=== PATIENT | female | born 1945 | race Caucasian/White ===

== ENCOUNTER 2016-09-29 17:00 | Inpatient (IN) | payer MEDICARE ==
[2016-09-29] VITALS (7 sets, daily range): BP systolic 122–162; BP diastolic 57–92; PULSE 92–114; RESP 20–42; TEMP 94–102.2; O2SAT 90–100
[~2016-09-29] VITALS: Ht 157.5 cm; Wt 52.7 kg
[~2016-09-29 17:00] MED LIST: ASPI81TA11 PO; CARV3.125 PO; FERR324T4 PO; GABA100C4 PO; GLIP5 PO; LOVA20TA PO; METF500 PO; PLAV75TA PO; WALKER ROLLING; ZIPR20 PO
[2016-09-29] MEDS ORDERED: SODIUM CHLOR 0.9% 1000 ML INJ 1,000 ML IV ONE ×2 (17:15)
[2016-09-29] MEDS ORDERED: SODIUM CHLORIDE 0.9% FLUSH 10 ML FLUSH IVF PRN (17:15)
[2016-09-29] MEDS ORDERED: methylPREDNISolone SOD SUCC 125 MG/2 ML VIAL IV PUSH ONE (17:15)
[2016-09-29] MEDS ORDERED: ACETAMINOPHEN 325 MG TAB PO ONE (17:15)
--- NOTE | 2016-09-29 17:25 | PD ---
HPI Chief Complaint: Fever Time Seen by Provider: 17:16 Travel History International Travel<30 days: No Contact w/Intl Traveler<30days: No Traveled to known affect area: No History of Present Illness HPI 71-year-old female presents to the emergency department via EMS for evaluation of fever, shortness of breath. The patient was poorly found in her car with the windows up at her apartment complex. It is unsure how long she was in her car. The patient is alert. She knows her name and that she has at [place], but is unsure of the year. She states she does not know how long she was in her car. She states she does remember going to her car. She does report not feeling well with cough and fever for the past month. Patient does not know her past medical history. According to chart, she does have history of diabetes , NSTEMI, CVA. PFSH Past Medical History Arthritis: Yes (bilat feet) Asthma: No Heart Rhythm Problems: No (unknown) Cancer: No Cardiovascular Problems: Yes (recent hospitalization reported [place]) High Cholesterol: Yes Chest Pain: No Congestive Heart Failure: No COPD: No Cerebrovascular Accident: Yes (recent hospitalization) Diabetes: Yes (TYPE II) Endocrine: Yes GERD: No Genitourinary: No Hepatitis: No Hiatal Hernia: No Immune Disorder: No Kidney Stones: No Musculoskeletal: No Neurologic: No Psychiatric: No Reproductive: No Respiratory: Yes Migraines: No Renal Failure: No Seizures: No Sickle Cell Disease: No Sleep Apnea: No Thyroid Disease: No Ulcer: No Past Surgical History Abdominal Surgery: No AICD: No Arteriovenous Shunt: No Cardiac Surgery: No Ear Surgery: No Endocrine Surgery: No Eye Surgery: Yes (bilat cataracts removed 2014) Genitourinary Surgery: No Gynecologic Surgery: No Insulin Pump: No Joint Replacement: No Oral Surgery: Yes (all teeth removed) Pacemaker: No Thoracic Surgery: No Social History Tobacco Use: No (former) Substance Use: Yes (no longer taking marijuana or alcohol) Allergies-Medications (Allergen,Severity, Reaction): Coded Allergies: No Known Allergies (Unverified , 11/20/15) Reported Meds & Prescriptions Reported Meds & Active Scripts Active Reported Aspirin Adult Low Strength (Aspirin) 81 Mg Tabdr 81 Mg PO DAILY Lovastatin 10 Mg Tab 10 Mg PO DAILY Metformin (Metformin HCl) 500 Mg Tab 500 Mg PO BID With meals Gabapentin 300 Mg Cap 300 Mg PO TID Plavix (Clopidogrel Bisulfate) 75 Mg Tab 75 Mg PO DAILY Coreg (Carvedilol) 3.125 Mg Tab 3.125 Mg PO BID Glipizide 10 Mg Tab 10 Mg PO DAILY Take 30 minutes before a meal Review of Systems Except as stated in HPI: all other systems reviewed are Neg Physical Exam Narrative GENERAL: Well-nourished, well-developed female patient, temp of [-]. SKIN: Focused skin assessment warm/dry. HEAD: Normocephalic. Atraumatic. EYES: No scleral icterus. No injection or drainage. NECK: Supple, trachea midline. No JVD or lymphadenopathy. CARDIOVASCULAR: Regular rate and rhythm without murmurs, gallops, or rubs. Bilateral radial and pedal pulses 2+. RESPIRATORY: Breath sounds equal bilaterally. No accessory muscle use. Lung sounds with diffuse rhonchi. GASTROINTESTINAL: Abdomen soft, non-tender, nondistended. MUSCULOSKELETAL: No cyanosis, or edema. BACK: Nontender without obvious deformity. No CVA tenderness. Data Data Last Documented VS Vital Signs Date Time Temp Pulse Resp B/P Pulse Ox O2 Delivery O2 Flow Rate FiO2 09/29/16 19:26 98.6 101 20 139/63 95 09/29/16 17:33 Nasal Cannula 2.00 Orders Complete Blood Count With Diff (09/29/16 17:12) Basic Metabolic Panel (Bmp) (09/29/16 17:12) B-Type Natriuretic Peptide (09/29/16 17:12) D-Dimer (09/29/16 17:12) Act Partial Throm Time (Ptt) (09/29/16 17:12) Prothrombin Time / Inr (Pt) (09/29/16 17:12) Magnesium (Mg) (09/29/16 17:12) Ckmb (Isoenzyme) Profile (09/29/16 17:12) Troponin I (09/29/16 17:12) Urinalysis - C+S If Indicated (09/29/16 17:12) Influenzae A/B Antigen (09/29/16 17:12) Blood Culture (09/29/16 17:12) Iv Access Insert/Monitor (09/29/16 17:12) Electrocardiogram (09/29/16 17:12) Ecg Monitoring (09/29/16 17:12) Oximetry (09/29/16 17:12) Oxygen Administration (09/29/16 17:12) Chest, Single Ap (09/29/16 17:12) Sodium Chloride 0.9% Flush (Ns Flush) (09/29/16 17:15) Albuterol-Ipratropium Neb (Duoneb Neb) (09/29/16 17:15) Arterial Blood Gas (Abg) (09/29/16 ) Acetaminophen (Tylenol) (09/29/16 17:15) Sodium Chlor 0.9% 1000 Ml Inj (Ns 1000 M (09/29/16 17:15) Sodium Chlor 0.9% 1000 Ml Inj (Ns 1000 M (09/29/16 17:15) Lactic Acid Sepsis Protocol (09/29/16 17:12) Methylprednisolone So Succ Inj (Solumedr (09/29/16 17:15) Cefepime Inj (Maxipime Inj) (09/29/16 18:00) Vancomycin Inj (Vancomycin Inj) (09/29/16 18:00) Urine Culture (09/29/16 17:15) Ct Pulmonary Angiogram (09/29/16 ) Iohexol 350 Inj (Omnipaque 350 Inj) (09/29/16 19:02) Admit Order (Ed Use Only) (09/29/16 19:34) Labs Laboratory Tests Test 09/29/16 09/29/16 09/29/16 17:10 17:15 17:35 Prothrombin Time 13.3 SEC Prothromb Time International 1.2 RATIO Ratio Activated Partial 25.3 SEC Thromboplast Time D-Dimer Quantitative (PE/DVT) 1.58 MG/L FEU Sodium Level 141 MEQ/L Potassium Level 3.4 MEQ/L Chloride Level 107 MEQ/L Carbon Dioxide Level 18.4 MEQ/L Anion Gap 16 MEQ/L Blood Urea Nitrogen 17 MG/DL Creatinine 1.16 MG/DL Estimat Glomerular Filtration 46 ML/MIN Rate Random Glucose 268 MG/DL Lactic Acid Level 2.4 mmol/L Calcium Level 8.2 MG/DL Magnesium Level 1.8 MG/DL Total Creatine Kinase 29 U/L Troponin I 0.06 NG/ML B-Type Natriuretic Peptide 3094 PG/ML White Blood Count 5.4 TH/MM3 Red Blood Count 5.47 MIL/MM3 Hemoglobin 14.4 GM/DL Hematocrit 45.1 % Mean Corpuscular Volume 82.5 FL Mean Corpuscular Hemoglobin 26.3 PG Mean Corpuscular Hemoglobin 31.8 % Concent Red Cell Distribution Width 15.5 % Platelet Count 119 TH/MM3 Mean Platelet Volume 8.9 FL Neutrophils (%) (Auto) 89.5 % Lymphocytes (%) (Auto) 4.3 % Monocytes (%) (Auto) 4.9 % Eosinophils (%) (Auto) 0.5 % Basophils (%) (Auto) 0.8 % Neutrophils # (Auto) 4.9 TH/MM3 Lymphocytes # (Auto) 0.2 TH/MM3 Monocytes # (Auto) 0.3 TH/MM3 Eosinophils # (Auto) 0.0 TH/MM3 Basophils # (Auto) 0.0 TH/MM3 CBC Comment DIFF FINAL Differential Comment Urine Color DARK-YELLOW Urine Turbidity HAZY Urine pH 5.5 Urine Specific [place] 1.023 Urine Protein 100 mg/dL Urine Glucose (UA) NEG mg/dL Urine Ketones TRACE mg/dL Urine Occult Blood SMALL Urine Nitrite NEG Urine Bilirubin NEG Urine Urobilinogen 4.0 MG/DL Urine Leukocyte Esterase LARGE Urine RBC 5 /hpf Urine WBC 57 /hpf Urine Squamous Epithelial 2 /hpf Cells Urine Transitional Epithelial 1 /hpf Cells Urine Bacteria MANY /hpf Urine Hyaline Casts 5 /lpf Urine Mucus MOD /lpf Microscopic Urinalysis Comment CULTURE INDICATED Blood Gas Puncture Site RT RADIAL Blood Gas Patient Temperature 98.6 Blood Gas HCO3 18 mmol/L Blood Gas Base Excess -5.8 mmol/L Blood Gas Oxygen Saturation 81 % Arterial Blood pH 7.41 Arterial Blood Partial 29 mmHg Pressure CO2 Arterial Blood Partial 50 mmHG Pressure O2 Arterial Blood Oxygen Content 11.0 Vol % Arterial Blood 1.7 % Carboxyhemoglobin Arterial Blood Methemoglobin 0.3 % Blood Gas Hemoglobin 9.7 G/DL Oxygen Delivery Device NASAL CANNULA Blood Gas Liter Flow 2 L/M [facility] Medical Decision Making Medical Screen Exam Complete: Yes Emergency Medical Condition: Yes Medical Record Reviewed: Yes Interpretation(s) Last Impressions Chest X-Ray 09/29/16 0273 Signed Impressions: Service Date/Time: Thursday, September 29, 2016 17:32 - CONCLUSION: 1. Small right pleural effusion with associated volume loss and/or airspace consolidation. 2. Retrocardiac opacity may represent atelectasis or airspace consolidation. Abdirizak Estrada MD CT pulmonary angiogram = CONCLUSION: 1. Examination quality degraded by respiratory motion artifact. However, no PE is identified. 2. Moderate severity emphysema with large right and small left pleural effusion with associated compressive atelectasis. 3. Severe coronary artery calcification atherosclerotic disease of the aorta. Differential Diagnosis pneumonia vs. dehydration vs. sepsis vs. electrolyte abnormality vs. PE vs. ACS Narrative Course 71-year-old female presents to the emergency department via EMS for evaluation after being found in her car with the windows. Patient does report cough and fever for the past month. EKG shows sinus tachycardia, heart rate 113. Patient does have ST depression in V4, V5, V6 but does appear unchanged when compared to previous EKGs. CBC, BMP, BNP, magnesium, CK, troponin, PTT, PTT/INR , d-dimer, lactic acid, blood cultures 2, and influenza are ordered and pending. ABG and chest x-ray are ordered and pending. Patient is given DuoNeb 2, Solu-Medrol 125 mg IV, Tylenol 650 mg by mouth. Patient is given normal saline IV bolus 2. CBC shows normal WBC of 5.4. BMP shows anion gap of 16, BUN 17, currently 1.16 , glucose 268. Magnesium is 1.8. CK is 29. Troponin is 0.06. Lactic acid is 2.4. BNP is 3094. Coags show no acute abnormality. D-dimer is elevated at 1.58. Influenza is negative. Chest x-ray shows small right pleural effusion with associated volume loss and/or airspace consolidation. 2. Retrocardiac opacity may represent atelectasis or airspace consolidation. Patient is given cefepime 2 g IV, vancomycin [address] pulmonary angiogram is ordered and pending. CT pulmonary angiogram shows examination quality degraded by respiratory motion artifact. However, no PE is identified; moderate severity emphysema with large right and small left pleural effusion with associated compressive atelectasis; Severe coronary artery calcification atherosclerotic disease of the aorta. [facility] is paged for admission. Sepsis Criteria SIRS Criteria (2 or more): Temp > 100.9 or < 96.8, Heart rate over 90 Sepsis Criteria (SIRS+source): Infect source susp/known Severe Sepsis (+one): Lactate >2 Diagnosis Primary Impression: Pleural effusion Additional Impression: Pneumonia Qualified Code: J18.1 - Pneumonia of right lower lobe due to infectious organism Admitting Information Admitting Physician Requests: Admit Anaid Hale Sep 29, 2016 17:25 Anaid Hale Sep 29, 2016 17:25
[2016-09-29] MEDS: RESP: ALBUTEROL 2.5 MG/IPRATROPIUM 0.5 MG NEB (SCH) INH (17:33)
[2016-09-29 17:50] LABS: BLOOD GAS BASE EXCESS -5.8 mmol/L (-2-2); BLOOD GAS CARBOXYHEMOGLOBIN 1.7 % (0-4); BLOOD GAS HCO3 18 mmol/L (22-26); BLOOD GAS METHEMOGLOBIN 0.3 % (0-2); BLOOD GAS O2 HGB SATURATION 81 % (90-100); BLOOD GAS PCO2 29 mmHg (38-42); BLOOD GAS PO2 50 mmHG (61-120); BLOOD GAS TOTAL HGB 9.7 G/DL (12.0-16.0); TEMP CORR TO 98.6
[2016-09-29 17:51] LABS: CRITICAL VALUE YES; LITER FLOW 2 L/M; OXYGEN DEVICE NASAL CANNULA
[2016-09-29 17:52] LABS: DRAW SITE RT RADIAL; NUMBER OF ARTERIAL PUNCTURES 1; STAT YES; ULNAR PULSE PRESENT
[2016-09-29 17:53] LABS: AUTOMATED NEUTROPHIL # 4.9 TH/MM3 (1.8-7.7); BASOPHIL % 0.8 % (0.0-2.0); EOSINOPHIL % 0.5 % (0.0-4.0); HEMATOCRIT 45.1 % (35.0-46.0); HEMO FLAGS DIFF FINAL; LYMPH % 4.3 % (9.0-44.0); LYMPHOCYTE # 0.2 TH/MM3 (1.0-4.8); MEAN CELL VOLUME 82.5 FL (80.0-100.0); MEAN CORPUSCULAR HEMOGLOBIN 26.3 PG (27.0-34.0); MEAN CORPUSCULAR HGB CONC 31.8 % (32.0-36.0); MONO % 4.9 % (0.0-8.0); NEUT % 89.5 % (16.0-70.0); PLATELET COUNT 119 TH/MM3 (150-450); RED BLOOD COUNT 5.47 MIL/MM3 (4.00-5.30); RED CELL DISTRIBUTION WIDTH 15.5 % (11.6-17.2); WHITE BLOOD COUNT 5.4 TH/MM3 (4.0-11.0)
[2016-09-29 17:57] LABS: BACTERIA, URINE MANY /hpf; BLOOD, URINE SMALL (NEG); COMMENT (UR) CULTURE INDICATED; CULTURE IF INDICATED CULTURE INDICATED; GLUCOSE,URINE NEG (NEG); HYALINE CAST, URINE 5 /lpf (RARE); KETONE, URINE TRACE mg/dL (NEG); MUCUS URINE MOD /lpf (OCC); NITRITE,URINE NEG (NEG); PH, URINE 5.5 (5.0-8.5); SQUAMOUS EPITHELIAL CELL URINE 2 /hpf (0-5); TRANSITIONAL EPI CELLS, URINE 1 /hpf; URINE COLOR DARK-YELLOW (YELLW/STRAW)
[2016-09-29] MEDS ORDERED: CEFEPIME INJ 2,000 MG in SODIUM CHLORIDE 0.9% INJ 100 ML IV ONE (18:00)
[2016-09-29] MEDS ORDERED: VANCOMYCIN INJ 1,500 MG in SODIUM CHLORID 0.9% 500 ML INJ 500 ML IV ONE (18:00)
[2016-09-29 18:06] LABS: APTT (PATIENT) 25.3 SEC (24.3-30.1); INTERNATIONAL NORMALIZED RATIO 1.2 RATIO; PROTHROMBIN TIME - PATIENT 13.3 SEC (9.8-11.6)
[2016-09-29 18:11] LABS: BICARBONATE 18.4 MEQ/L (21.0-32.0); MAGNESIUM 1.8 MG/DL (1.5-2.5); POTASSIUM 3.4 MEQ/L (3.5-5.1)
--- NOTE | 2016-09-29 18:17 | RADRPT ---
EXAM DATE/TIME: 09/29/2016 17:32 [facility] COMPARISON: CHEST SINGLE AP, November 22, 2015, 15:30. INDICATIONS : Fever. Cough. Short of breath. Chest pain. MEDICAL HISTORY : Hypercholesterolemia. Diabetes mellitus type II. Chronic obstructive pulmonary disease. Hypertens ion. Carcinoma, basal cell. SURGICAL HISTORY : Bilateral cataracts. Teeth extraction. Bilateral common and external iliac angioplasty. Right femoral endarterectomy. Left commom iliac stent. ENCOUNTER: Initial ACUITY: 2 days PAIN SCORE: 3/10 LOCATION: Bilateral chest FINDINGS: Portable AP view of the chest demonstrates a normal-sized cardiac silhouette with calcification of th e aorta. There is a right basilar pleural-parenchymal opacity. There are perihilar interstitial opaci ties bilaterally. Mild retrocardiac opacity is present. There is no pneumothorax visualized. Bones an d soft tissues demonstrate no acute finding. CONCLUSION: 1. Small right pleural effusion with associated volume loss and/or airspace consolidation. 2. Retrocardiac opacity may represent atelectasis or airspace consolidation. Abdirizak Estrada MD on September 29, 2016 at 18:13 Board Certified Radiologist. This report was verified electronically.
[2016-09-29] MEDS ORDERED: GABA300C5 PO (18:44)
[2016-09-29] MEDS ORDERED: METF500T PO (18:44)
[2016-09-29] MEDS ORDERED: PLAV75TA29 PO (18:44)
[2016-09-29] MEDS ORDERED: CARV3.125 PO (18:44)
[2016-09-29] MEDS ORDERED: LOVA10TA PO (18:44)
[2016-09-29] MEDS ORDERED: ASPI1TAB91 PO (18:44)
[2016-09-29] MEDS ORDERED: GLIP10TA6 PO (18:44)
[2016-09-29] MEDS ORDERED: IOHEXOL 350 MG/ML 10 ML VIAL (for RAD DIAG) IV ONE (19:02)
--- NOTE | 2016-09-29 19:13 | RADRPT ---
EXAM DATE/TIME: 09/29/2016 18:52 [facility] COMPARISON: CHEST SINGLE AP, September 29, 2016, 17:32. INDICATIONS : Shortness of breath. IV CONTRAST: 100 cc Omnipaque 350 (iohexol) IV RADIATION DOSE: 22.84 CTDIvol (mGy) MEDICAL HISTORY : Cardiovascular disease. Hypertension. SURGICAL HISTORY : None. ENCOUNTER: Initial ACUITY: 1 day PAIN SCALE: 3/10 LOCATION: Bilateral chest TECHNIQUE: Volumetric scanning of the chest was performed using a pulmonary embolism protocol MIP images were re constructed. Using automated exposure control and adjustment of the mA and/or kV according to patien t size, radiation dose was kept as low as reasonably achievable to obtain optimal diagnostic quality images. FINDINGS: PULMONARY ARTERIES: No filling defects are seen in the pulmonary arteries through the segmental level. LUNGS: There is [id number] centrilobular emphysema. Compressive atelectasis is present in both lower l obes, right greater than left. There is respiratory motion artifact. No pneumothorax is visualized. PLEURAE: There is a large right pleural effusion and small left pleural effusion. MEDIASTINUM: Heart and great vessels demonstrate no acute finding. There is severe atherosclerotic disease of aort a and coronary artery calcification. Trace pericardial fluid is present. No lymphadenopathy is visual ized. MUSCULOSKELETAL: There are degenerative changes of the thoracic spine. MISCELLANEOUS: The visualized upper abdominal organs demonstrate no acute abnormality. CONCLUSION: 1. Examination quality degraded by respiratory motion artifact. However, no PE is identified. 2. Moderate severity emphysema with large right and small left pleural effusion with associated compr essive atelectasis. 3. Severe coronary artery calcification atherosclerotic disease of the aorta. Abdirizak Estrada MD on September 29, 2016 at 19:06 Board Certified Radiologist. This report was verified electronically.
[2016-09-29 19:44] LABS: LACTIC ACID GHOST NOT REPORTABLE
[2016-09-29] MEDS ORDERED: NALOXONE HCL 0.4 MG/ML AMP IV PRN (19:45)
[2016-09-29] MEDS ORDERED: SODIUM CHLORIDE 0.9% FLUSH 10 ML FLUSH IV FLUSH PRN (19:45)
[2016-09-29] MEDS ORDERED: FUROSEMIDE 40 MG/4 ML VIAL IV PUSH ONE ×2 (20:00→22:30)
[2016-09-29] MEDS ORDERED: POTASSIUM CHLORIDE 25 MEQ EFFERVESCENT TAB PO ONE (20:00)
[2016-09-29] MEDS: SODIUM CHLORIDE 0.9% FLUSH 10 ML FLUSH IV FLUSH SCH (21:00)
--- NOTE | 2016-09-29 22:23 | HHI.HP ---
[facility] Admission Diagnosis bilateral pleural effusions, pneumonia, sepsis Diagnoses: Chief Complaint: SOB with cough and chest pain Travel History International Travel<30 Days: No Contact w/Intl Traveler <30 Da: No Traveled to Known Affected Are: No Sepsis Criteria SIRS Criteria (2 or more): Temp > 100.9 or < 96.8, Heart rate over 90, RR > 20 or PaCO2 < 32 Sepsis Criteria (SIRS+source): Infect source susp/known History of Present Illness This is a 71 year old female patient with a past medical history which includes Peripheral vascular disease, CVA, Non-ST elevation myocardial infarction, CAD, Hypertension and CHF. Patient reports she does not know why she is here at the hospital. Patient is a poor historian and only able to provide limited information. Information gathered from patient and prior charting. Patient was found today in her car at her apartment complex with the windows up. Patient does not recall being in the car. Patient reports shortness of breath with productive cough for the last few days. Patient also report chest pain which she describes as a tightness located on the left side of her chest worse with deep breathing. There is no radiation of the pain/tightness. Patient denies associated nausea, vomiting or diaphoresis. Patient report she fell about three days ago and her granddaughter had to help her up. Patient reports that she has fallen three time in the last few days. Patient denies LOC, head trauma or injuries. Patient does not recall fevers or chills recently. Patient on arrival temperature was 102.2 rectally, HR 114, RR 42, BP 156/67 and pulse oximetry 90% on room air. Review of Systems Except as stated in HPI: all other systems reviewed are Neg Past Family Social History Past Medical History Peripheral vascular disease CVA Non-ST elevation myocardial infarction CAD Hypertension CHF Diabetes mellitus type 2 Past Surgical History Cataract surgery Right Achilles tendon surgery Reported Medications Aspirin Adult Low Strength (Aspirin) 81 Mg Tabdr 81 Mg PO DAILY Lovastatin 10 Mg Tab 10 Mg PO DAILY Metformin (Metformin HCl) 500 Mg Tab 500 Mg PO BID With meals Gabapentin 300 Mg Cap 300 Mg PO TID Plavix (Clopidogrel Bisulfate) 75 Mg Tab 75 Mg PO DAILY Coreg (Carvedilol) 3.125 Mg Tab 3.125 Mg PO BID Glipizide 10 Mg Tab 10 Mg PO DAILY Take 30 minutes before a meal Allergies: Coded Allergies: No Known Allergies (Unverified , 11/20/15) Active Ordered Medications Current Medications Medications (Trade) Dose Ordered Sig/Unruly Route Start Time Stop Time Status Last Admin (NS Flush) 2 ml UNSCH PRN IV FLUSH 09/29/16 19:45 (NS Flush) 2 ml BID IV FLUSH 09/29/16 21:00 09/29/16 21:00 (Narcan Inj) 0.4 mg UNSCH PRN IV 09/29/16 19:45 (Nitroglycerin 2% Oint) 0.5 inch Q6HR TOPICAL 09/30/16 00:00 Heparin Sodium (Porcine) 5000 units 5,000 units Q8HR SQ 09/30/16 06:00 (Maxipime Inj/NS Inj) 100 ml @ 200 mls/hr Q12H IV 09/30/16 06:00 Family History daughter had CA x 3 Social History Lives alone quit smoking 10 to 15 years ago Denies ETOH use or illicit drug use Physical Exam Vital Signs Vital Signs Date Time Temp Pulse Resp B/P Pulse Ox O2 Delivery O2 Flow Rate FiO2 09/29/16 21:44 94.0 100 21 162/92 100 09/29/16 20:54 92 20 155/76 97 Nasal Cannula 2 09/29/16 19:26 98.6 101 20 139/63 95 09/29/16 17:36 104 122/57 09/29/16 17:33 96 Nasal Cannula 2.00 09/29/16 17:23 102.2 09/29/16 17:17 95 Nasal Cannula 2 09/29/16 17:17 Nasal Cannula 09/29/16 17:15 113 Nasal Cannula 2 09/29/16 17:11 114 42 156/67 90 Physical Exam GENERAL: This is a well-nourished, well-developed patient, in no apparent distress. SKIN: No rashes, ecchymoses or lesions. Cool and dry. HEAD: Atraumatic. Normocephalic. No temporal or scalp tenderness. EYES: Extraocular motions intact. No scleral icterus. No injection or drainage. CARDIOVASCULAR: Regular rate and rhythm without murmurs, gallops, or rubs. RESPIRATORY: diminished through out GASTROINTESTINAL: Abdomen soft, non-tender, nondistended. No hepato-splenomegaly , or palpable masses. No guarding. MUSCULOSKELETAL: Extremities without clubbing, cyanosis, or edema. No joint tenderness, effusion, or edema noted. No calf tenderness. Negative Homans sign bilaterally. NEUROLOGICAL: Awake and alert. no focal deficits appreciated. Motor and sensory grossly within normal limits. 4-5 out of 5 muscle strength in all muscle groups. Normal speech. Laboratory Laboratory Tests Test 09/29/16 09/29/16 09/29/16 09/29/16 17:10 17:15 17:35 20:20 White Blood Count 5.4 Red Blood Count 5.47 Hemoglobin 14.4 Hematocrit 45.1 Mean Corpuscular Volume 82.5 Mean Corpuscular Hemoglobin 26.3 Mean Corpuscular Hemoglobin 31.8 Concent Red Cell Distribution Width 15.5 Platelet Count 119 Mean Platelet Volume 8.9 Neutrophils (%) (Auto) 89.5 Lymphocytes (%) (Auto) 4.3 Monocytes (%) (Auto) 4.9 Eosinophils (%) (Auto) 0.5 Basophils (%) (Auto) 0.8 Neutrophils # (Auto) 4.9 Lymphocytes # (Auto) 0.2 Monocytes # (Auto) 0.3 Eosinophils # (Auto) 0.0 Basophils # (Auto) 0.0 CBC Comment DIFF FINAL Differential Comment Prothrombin Time 13.3 Prothromb Time International 1.2 Ratio Activated Partial 25.3 Thromboplast Time D-Dimer Quantitative (PE/DVT) 1.58 Sodium Level 141 Potassium Level 3.4 Chloride Level 107 Carbon Dioxide Level 18.4 Anion Gap 16 Blood Urea Nitrogen 17 Creatinine 1.16 Estimat Glomerular Filtration 46 Rate Random Glucose 268 Lactic Acid Level 2.4 1.5 Calcium Level 8.2 Magnesium Level 1.8 Total Creatine Kinase 29 Troponin I 0.06 B-Type Natriuretic Peptide 3094 Urine Color DARK-YELLOW Urine Turbidity HAZY Urine pH 5.5 Urine Specific [place] 1.023 Urine Protein 100 Urine Glucose (UA) NEG Urine Ketones TRACE Urine Occult Blood SMALL Urine Nitrite NEG Urine Bilirubin NEG Urine Urobilinogen 4.0 Urine Leukocyte Esterase LARGE Urine RBC 5 Urine WBC 57 Urine Squamous Epithelial 2 Cells Urine Transitional Epithelial 1 Cells Urine Bacteria MANY Urine Hyaline Casts 5 Urine Mucus MOD Microscopic Urinalysis Comment CULTURE INDICATED Blood Gas Puncture Site RT RADIAL Blood Gas Patient Temperature 98.6 Blood Gas HCO3 18 Blood Gas Base Excess -5.8 Blood Gas Oxygen Saturation 81 Arterial Blood pH 7.41 Arterial Blood Partial 29 Pressure CO2 Arterial Blood Partial 50 Pressure O2 Arterial Blood Oxygen Content 11.0 Arterial Blood 1.7 Carboxyhemoglobin Arterial Blood Methemoglobin 0.3 Blood Gas Hemoglobin 9.7 Oxygen Delivery Device NASAL CANNULA Blood Gas Liter Flow 2 Date/Time Procedure Status Source Growth 09/29/16 18:20 Influenza Types A,B Antigen (DONNIE) - Final Complete Nasal Aspirate NEGATIVE FOR FLU A AND B ANTIGEN.... 09/29/16 17:15 Urine Culture Received Urine Random Urine Pending 09/29/16 17:15 Aerobic Blood Culture Received Blood Peripheral Pending 09/29/16 17:15 Anaerobic Blood Culture Received Blood Peripheral Pending Result Diagram: 09/29/16 1710 09/29/16 1710 Imaging Last Impressions Chest X-Ray 09/29/16 1712 Signed Impressions: Service Date/Time: Thursday, September 29, 2016 17:32 - CONCLUSION: 1. Small right pleural effusion with associated volume loss and/or airspace consolidation. 2. Retrocardiac opacity may represent atelectasis or airspace consolidation. Abdirizak Estrada MD CT Angiography 09/29/16 0000 Signed Impressions: Service Date/Time: Thursday, September 29, 2016 18:52 - CONCLUSION: 1. Examination quality degraded by respiratory motion artifact. However, no PE is identified. 2. Moderate severity emphysema with large right and small left pleural effusion with associated compressive atelectasis. 3. Severe coronary artery calcification atherosclerotic disease of the aorta. Abdirizak Estrada MD Septic Shock Reassessment Heart: Regular rate and rhythm Lungs: Diminished Skin: Warm, Moist Peripheral Pulses: Bounding Right Radial Bounding Left Radial Bounding Right Dorsalis Pedis Bounding Left Dorsalis Pedis Capillary Refill: Brisk Assessment and Plan Problem List: (1) Pleural effusion ICD Code: J90 Status: Acute (2) Pneumonia ICD Code: J18.9 Status: Acute (3) CHF (congestive heart failure) ICD Code: I50.9 Status: Acute (4) Chest pain ICD Code: R07.9 Status: Acute (5) DM2 (diabetes mellitus, type 2) ICD Code: E11.9 Status: Chronic Assessment and Plan Chest pain R/O ACS Initial EKG reviewed and reveals ST rate 113 ST depression on lateral leads Initial troponin 0.06 serial troponin serial EKG lipid profile in AM continue home Coreg, lovastatin, aspirin and Plavix bilateral pleural effusion PNA sepsis by criteria ( arrival temperature was 102.2 rectally, HR 114, RR 42, Lactic acid 2.4) CXR reviewed by myself and Dr. Borden reveals 1. Small right pleural effusion with associated volume loss and/or airspace consolidation. 2. Retrocardiac opacity may represent atelectasis or airspace consolidation. cefepime and vancomycin given in ER start cefepime 2 grams Q12 hours. Elevated D dimer CTA negative for PE acute on chronic CHF exacerbation BNP 3094 Lasix 40 mg IV x 1 with an additional 40 mg IV ordered Miguel for accurate output measurement Echocardiogram ordered hypokalemia potassium 3.4 replaced and recheck in AM DM type 2 hold metformin and glipizide accu check ACHS with SSI coverage recurrent falls- possibly related to weakness from pna vs syncope echocardiogram ordered bilateral carotid artery US ordered DVT prophylaxis with heparin subQ Patient was seen as a shared visit by myself and Dr. Borden. Physician Certification 2 Midnight Certification Type: Admission for Inpatient Services Order for Inpatient Services The services are ordered in accordance with Medicare regulations or non- Medicare payer requirements, as applicable. In the case of services not specified as inpatient-only, they are appropriately provided as inpatient services in accordance with the 2-midnight benchmark. Estimated LOS (days): 4 days is the estimated time the patient will need to remain in the hospital, assuming treatment plan goals are met and no additional complications. Post-Hospital Plan: Not yet determined Problem Qualifiers (1) Pneumonia: Qualified Code: J18.1 - Pneumonia of right lower lobe due to infectious organism (2) CHF (congestive heart failure): Qualified Code: I50.9 - Acute on chronic congestive heart failure, unspecified congestive heart failure type Aranza Callejas Sep 29, 2016 22:23
[2016-09-29] MEDS ORDERED: POTASSIUM CHLORIDE 20 MEQ CONTROLLED RELEASE TAB PO ONE (22:30)
[2016-09-29 23:14] LABS: BACTERIA, URINE RARE /hpf; BLOOD, URINE NEG (NEG); GLUCOSE,URINE NEG (NEG); HYALINE CAST, URINE 1 /lpf (RARE); KETONE, URINE NEG (NEG); MUCUS URINE FEW /lpf (OCC); NITRITE,URINE NEG (NEG); URINE COLOR LIGHT-YELLOW (YELLW/STRAW)
[2016-09-29 23:15] LABS: COMMENT (UR) CATH-CULTURE IND; CULTURE IF INDICATED CATH CULTURE IND
[2016-09-29] MEDS: NITROGLYCERIN 2% OINT 1 GM PACKET TOPICAL SCH (23:24)
[2016-09-29] MEDS ORDERED: DEXTROSE 50% IN WATER 50 ML VIAL(D50) IV PRN (23:45)
[2016-09-29] MEDS ORDERED: GLUCAGON 1 MG/ML VIAL OTHER PRN (23:45)
[2016-09-30] VITALS (7 sets, daily range): BP systolic 110–146; BP diastolic 62–97; PULSE 64–92; RESP 16–21; TEMP 93–98.4; O2SAT 94–100
--- NOTE | 2016-09-30 02:46 | RADRPT ---
EXAM DATE/TIME: 09/30/2016 02:12 [facility] COMPARISON: CT BRAIN W/O CONTRAST, November 21, 2015, 11:24. INDICATIONS : Trauma, fall. RADIATION DOSE: 56.35 CTDIvol (mGy) MEDICAL HISTORY : Congestive heart failure. Myocardial infarction. Hypertension.CVA. Diabetes. SURGICAL HISTORY : None. ENCOUNTER: Initial ACUITY: 1 day PAIN SCALE: 0/10 LOCATION: cranial TECHNIQUE: Multiple contiguous axial images were obtained of the head. Using automated exposure control and adj ustment of the mA and/or kV according to patient size, radiation dose was kept as low as reasonably a chievable to obtain optimal diagnostic quality images. FINDINGS: CEREBRUM: No evidence of midline shift, mass lesion, hemorrhage or acute infarction. No extra-axial fluid james ections are seen. Atrophy and chronic white matter changes are again noted with associated mild ventr icular prominence. POSTERIOR FOSSA: The cerebellum and brainstem are intact. The 4th ventricle is midline. The cerebellopontine angle i s unremarkable. EXTRACRANIAL: The visualized portion of the orbits is intact. There is mucoperiosteal thickening of the visualized maxillary air cells, especially on the right. SKULL: The calvaria is intact. No evidence of skull fracture. CONCLUSION: No bleed or other acute intracranial abnormality. Atrophy and chronic white matter changes are noted. Chronic paranasal sinus disease. Abdirizak Bailey MD on September 30, 2016 at 2:43 Board Certified Radiologist. This report was verified electronically.
[2016-09-30 04:10] LABS: AUTOMATED NEUTROPHIL # 4.7 TH/MM3 (1.8-7.7); BASOPHIL % 0.1 % (0.0-2.0); EOSINOPHIL % 0.1 % (0.0-4.0); HEMATOCRIT 34.7 % (35.0-46.0); HEMO FLAGS DIFF FINAL; LYMPH % 6.7 % (9.0-44.0); LYMPHOCYTE # 0.4 TH/MM3 (1.0-4.8); MEAN CELL VOLUME 82.2 FL (80.0-100.0); MEAN CORPUSCULAR HEMOGLOBIN 26.5 PG (27.0-34.0); MEAN CORPUSCULAR HGB CONC 32.2 % (32.0-36.0); MONO % 3.3 % (0.0-8.0); NEUT % 89.8 % (16.0-70.0); PLATELET COUNT 167 TH/MM3 (150-450); RED BLOOD COUNT 4.23 MIL/MM3 (4.00-5.30); RED CELL DISTRIBUTION WIDTH 15.3 % (11.6-17.2); WHITE BLOOD COUNT 5.2 TH/MM3 (4.0-11.0)
[2016-09-30 04:12] LABS: APTT (PATIENT) 27.6 SEC (24.3-30.1)
[2016-09-30 05:01] LABS: BICARBONATE 18.3 MEQ/L (21.0-32.0); HDL CHOLESTEROL 24.2 MG/DL (40.0-60.0); POTASSIUM 4.4 MEQ/L (3.5-5.1)
[2016-09-30] MEDS ORDERED: HEPARIN SODIUM - SQ 10,000 UNITS/ML VIAL SQ SCH (06:00)
[2016-09-30] MEDS: CEFEPIME INJ 2,000 MG in SODIUM CHLORIDE 0.9% INJ 100 ML IV SCH ×2 (06:36→16:34)
[2016-09-30] MEDS: NITROGLYCERIN 2% OINT 1 GM PACKET TOPICAL SCH ×3 (06:36→16:34)
[2016-09-30] MEDS: INSULIN ASPART SUPPLEMENTAL SCALE SQ SCH ×4 (06:38→20:36)
[2016-09-30] MEDS: HEPARIN-D5W INJ 250 ML IV SCH (06:40)
--- NOTE | 2016-09-30 08:13 | MB ---
cc: KENIA ALBA M.D. DATE OF CONSULTATION 09/30/2016 REASON FOR CONSULTATION Evaluation of elevated cardiac enzymes HISTORY This is of my first time seeing Debra Laird who is a 71-year-old woman with multiple establish severe medical problems. She has peripheral vascular disease, diabetes, previous stroke, known coronary artery disease, hypertension and previous CHF. The patient does not remember how she got here. She is alert and oriented and I am seeing her in her room. She was found in her car at her apartment complex with the windows up. She has no memory of this. She states she has had a cough for two and half months. When I asked her if she has been to any doctors, she cannot recall any doctor's visits. She also does not remember the names of any of her doctors with the exception of Dr. Morel. She was hospitalized in November following a stroke after a peripheral vascular procedure. She saw Dr. Pérez Baltazar at that time, but she does not recall seeing him for any followup. The patient told me she gets a stabbing chest pain in the left side of her chest. I could not elicit any typical angina despite the elevated enzymes. She denies noticing any fever or chills. She is aware, however, of her cough. She is quite sedentary. She drives very low according to her. She lives by herself in a condominium. She does have a daughter but says she does not see her daughter very much. PAST MEDICAL HISTORY Includes: 1. Peripheral arterial disease. She had bilateral iliac balloon angioplasty in November 2015 with a left common iliac stent and a right common femoral endarterectomy. 2. Diabetes 3. Emphysema by CT with previous history of smoking. 4. Known coronary disease was not considered a candidate for a cath in November 2015. 5. Stroke in November 2015 with right upper extremity weakness and slurred speech, but slightly seems to have recovered. 6. Hyperlipidemia 7. Type 2 diabetes 8. Essential hypertension PAST SURGICAL HISTORY Includes: 1. Cataract surgery 2. Right Achilles tendon surgery. MEDICATIONS Supposedly include: 1. Aspirin 2. Lovastatin 3. Metformin 4. Gabapentin 5. Plavix 6. Carvedilol low dose 7. Glipizide ALLERGIES None known. FAMILY HISTORY Positive for coronary disease in her daughter. SOCIAL HISTORY She lives alone. She had smoked significantly until she quit 10 years ago. Denies old alcohol. PHYSICAL EXAM Physical exam reveals a thin elderly white female. She is alert this morning. She has had a at a max temperature of 102.2 degrees at 05:23 p.m. yesterday. HEENT: Exam is unremarkable. NECK: Negative for JVD or bruits. CHEST: Shows diminished breath sounds at the right base. She has coarse wet cough. CARDIAC: S1-S2 regular rate and rhythm, 1/6 systolic murmur. ABDOMEN: Soft. EXTREMITIES: Show absent pedal pulses. No peripheral edema. EKG shows sinus tachycardia with diffuse ST changes and prominent depression AT V4-V6. This is actually similar to her admission in November of last year. Subsequent EKG's show persistent ST-T abnormalities, although they are slightly improved. She has had a chest x-ray, PET CT and chest CT. She has a moderate right pleural effusion and a small left pleural effusion. LABORATORY DATA Laboratories show a hematocrit of 34.7 which was 45.1 yesterday. BUN is 17, creatinine 1.16. Troponins elevated to 0.37. BMP was elevated at 3094. Troponin started out at 0.06 yesterday. Lactic acid was markedly elevated at 2.4 and has now come down to normal. IMPRESSION This is a frail 71-year-old elderly female who has had a prior stroke, has known severe vascular disease who comes in now very febrile with what appears to be pneumonia and has had clear evidence for a non-ST segment elevation WA. I think this is a type 2 WA, the WA was precipitated by her pneumonia and has an acidosis. She is clinically improving. She is very alert today currently on IV antibiotics. I think it is to soon to consider catheterization on her. She has a very high likelihood of having severe coronary disease and she looks to be a very poor candidate for open heart bypass surgery. PLAN The patient is currently anticoagulated receiving antibiotics. 2-D echo Doppler is ordered to assess her LV function. Further therapy to be determined. MD CARLOS Daniels/OPHELIA /7:59 AM /8:07 AM
[2016-09-30] MEDS: PRAVASTATIN SOD 10 MG TAB PO SCH (08:23)
[2016-09-30] MEDS: CARVEDILOL 3.125 MG TAB PO SCH ×2 (08:23→20:36)
[2016-09-30] MEDS: CLOPIDOGREL 75 MG TAB PO SCH (08:23)
[2016-09-30] MEDS: SODIUM CHLORIDE 0.9% FLUSH 10 ML FLUSH IV FLUSH SCH ×2 (08:23→20:36)
[2016-09-30] MEDS: ASPIRIN EC 81 MG TABEC PO SCH (08:23)
[2016-09-30] MEDS ORDERED: HEPARIN SODIUM - IV 10,000 UNITS/10 ML VIAL IV PRN ×2 (09:15)
--- NOTE | 2016-09-30 09:50 | RADRPT ---
EXAM DATE/TIME: 09/30/2016 09:05 [facility] COMPARISON: US CAROTID ARTERIES, November 21, 2015, 14:07. INDICATIONS : Syncope. MEDICAL HISTORY : PVD. CVA. MS. CAD. Hypertension. CHF. SURGICAL HISTORY : Cataract. Right achilles tendon surgery. ENCOUNTER: Initial ACUITY: 1 day PAIN SCORE: 0/10 LOCATION: Bilateral neck PEAK SYSTOLIC VELOCITIES (cm/sec): ICA/CCA RATIO: Right: 1.9 Left: 1.8 ICA: Right: 90 Left: 94 CCA: Right: 46 Left: 52 ECA: Right: 135 Left: 113 VERTEBRAL: Right: 65 antegrade Left: NO FLOW SEEN absent Elevated flow velocities and ICA/CCA ratios have been found to correlate with increased degrees of vessel stenosis, calculated as percentage of diameter relative to a normal segment of distal ICA/CCA FINDINGS: RIGHT CAROTID: There is extensive atherosclerotic plaquing. The waveforms are within normal limits. LEFT CAROTID: There is extensive atherosclerotic plaquing. The waveforms are within normal limits. VERTEBRAL ARTERIES: Antegrade flow is seen in both vertebral arteries. MISCELLANEOUS: None. CONCLUSION: 1. Extensive atherosclerotic plaquing at the carotid bifurcations. Velocities suggest a mild degree o f stenosis less than 50%. The extensive plaquing at the bifurcation is somewhat out of proportion to the velocity measurements within the carotids. CTA of the carotid circulation is warranted for furthe r assessment. 2. The left vertebral was not identified. Damon Najera MD on September 30, 2016 at 9:45 Board Certified Radiologist. This report was verified electronically.
--- NOTE | 2016-09-30 10:11 | HHI.PR ---
Subjective Remarks f/u for NSTEMI and PNA Patient stated that she continues have chest pain but smiled. Denying nausea or vomiting. Positive shortness of breathing. Patient stated that she is not able to walk. She stated that her baseline is that she can only walk for short period of time, but it hasn't worsened recently. She could not tell me if it was because of shortness of breathing or weakness. Denies any fecal or urinary incontinence. Denies any pain in the lower back or paresthesia of her lower extremity. Objective Vitals Vital Signs Date Time Temp Pulse Resp B/P Pulse Ox O2 Delivery O2 Flow Rate FiO2 09/30/16 08:00 98.4 64 18 127/97 94 09/30/16 05:36 95.2 92 20 141/83 100 09/30/16 01:30 87 09/30/16 00:16 93.0 89 21 146/83 97 09/29/16 21:44 94.0 100 21 162/92 100 09/29/16 20:54 92 20 155/76 97 Nasal Cannula 2 09/29/16 19:26 98.6 101 20 139/63 95 09/29/16 17:36 104 122/57 09/29/16 17:33 96 Nasal Cannula 2.00 09/29/16 17:23 102.2 09/29/16 17:17 95 Nasal Cannula 2 09/29/16 17:17 Nasal Cannula 09/29/16 17:15 113 Nasal Cannula 2 09/29/16 17:11 114 42 156/67 90 I/O 09/29/16 09/29/16 09/29/16 09/30/16 09/30/16 09/30/16 07:00 15:00 23:00 07:00 15:00 23:00 Intake Total 667 ml Output Total 150 ml 900 ml Balance 517 ml -900 ml IV Total 667 ml Output Urine Total 150 ml 900 ml Result Diagram: 09/30/16 0345 09/30/16 0345 Objective Remarks GENERAL: in NAD CARDIOVASCULAR: Regular rate and rhythm without murmurs, gallops, or rubs. RESPIRATORY: Mild right lower lobe crackles. Otherwise clear to auscultation. No accessory muscle use. GASTROINTESTINAL: Abdomen soft, non-tender, nondistended. MUSCULOSKELETAL: No cyanosis, or edema. BACK: Nontender without obvious deformity. No CVA tenderness. Medications and IVs Current Medications Sodium Chloride (NS Flush) 2 ml UNSCH PRN IVF FLUSH AFTER USING IV ACCESS; Start 09/29/16 at 17:15; Stop 09/29/16 at 19:56; Status DC Albuterol/ Ipratropium (Duoneb Neb) 1 ampule Q15M INH Last administered on 09/29 17:33; Start 09/29/16 at 17:15; Stop 09/29/16 at 17:31; Status DC Acetaminophen 650 mg 650 mg ONCE ONCE PO Last administered on 09/29/16 17:28 ; Start 09/29/16 at 17:15; Stop 09/29/16 at 17:16; Status DC Sodium Chloride 1,000 ml @ 999 mls/hr BOLUS ONCE IV Last administered on 09/29 17:29; Start 09/29/16 at 17:15; Stop 09/29/16 at 18:15; Status DC Sodium Chloride (NS 1000 ml Inj) 1,000 ml @ 999 mls/hr BOLUS ONCE IV Last administered on 09/29/16 17:19; Start 09/29/16 at 17:15; Stop 09/29/16 at 18:15 ; Status DC Methylprednisolone Sodium Succinate 125 mg 125 mg ONCE ONCE IV PUSH Last administered on 09/29/16 17:28; Start 09/29/16 at 17:15; Stop 09/29/16 at 17:16 ; Status DC Cefepime HCl 2000 mg/Sodium Chloride 100 ml @ 200 mls/hr ONCE ONCE IV Last administered on 09/29/16 18:00; Start 09/29/16 at 18:00; Stop 09/29/16 at 18:29 ; Status DC Vancomycin HCl/ Sodium Chloride (Vancomycin Inj/ NS 500 ml Inj) 515 ml @ 257.5 mls/ hr ONCE ONCE IV Last administered on 09/29/16 18:00; Start 09/29/16 at 18:00; Stop 09/29/16 at 19:59; Status DC Iohexol (Omnipaque 350 Inj) 100 ml STK-MED ONCE IV Last administered on 19:02; Start 09/29/16 at 19:02; Stop 09/29/16 at 19:03; Status DC Sodium Chloride (NS Flush) 2 ml UNSCH PRN IV FLUSH FLUSH AFTER USING IV ACCESS ; Start 09/29/16 at 19:45 Sodium Chloride (NS Flush) 2 ml BID IV FLUSH Last administered on 09/29/16 21: 00; Start 09/29/16 at 21:00 Naloxone HCl (Narcan Inj) 0.4 mg UNSCH PRN IV SEE LABEL COMMENTS; Start at 19:45 Furosemide (Lasix Inj) 40 mg ONCE ONCE IV PUSH Last administered on 09/29/16 20:00; Start 09/29/16 at 20:00; Stop 09/29/16 at 20:01; Status DC Potassium Bicarb/ Potassium Chloride (K-Lyte Cl Eff) 50 meq ONCE ONCE PO Last administered on 09/29/16 20:00; Start 09/29/16 at 20:00; Stop 09/29/16 at 20:01; Status DC Furosemide (Lasix Inj) 40 mg ONCE ONCE IV PUSH Last administered on 09/29/16 23:24; Start 09/29/16 at 22:30; Stop 09/29/16 at 22:31; Status DC Potassium Chloride (KCl) 20 meq ONCE ONCE PO Last administered on 09/29/16 23 :24; Start 09/29/16 at 22:30; Stop 09/29/16 at 22:31; Status DC Nitroglycerin (Nitroglycerin 2% Oint) 0.5 inch Q6HR TOPICAL Last administered on 09/30/16 06:36; Start 09/30/16 at 00:00 Heparin Sodium (Porcine) 5000 units 5,000 units Q8HR SQ ; Start 09/30/16 at 06: 00; Stop 09/30/16 at 06:00; Status DC Cefepime HCl/ Sodium Chloride (Maxipime Inj/NS Inj) 100 ml @ 200 mls/hr Q12H IV Last administered on 09/30/16 06:36; Start 09/30/16 at 06:00 Aspirin (Ecotrin Ec) 81 mg DAILY PO Last administered on 09/30/16 08:23; Start 09/30/16 at 09:00 Carvedilol (Coreg) 3.125 mg BID PO Last administered on 09/30/16 08:23; Start 09/30/16 at 09:00 Clopidogrel Bisulfate (Plavix) 75 mg DAILY PO Last administered on 09/30/16 08 :23; Start 09/30/16 at 09:00 Pravastatin Sodium (Pravachol) 10 mg DAILY PO Last administered on 09/30/16 08 :23; Start 09/30/16 at 09:00 Dextrose (D50w (Vial) Inj) 50 ml UNSCH PRN IV HYPOGLYCEMIA-SEE COMMENTS; Start 09/29/16 at 23:45 Glucagon (Glucagon Inj) 1 mg UNSCH PRN OTHER HYPOGLYCEMIA-SEE COMMENTS; Start 09/29/16 at 23:45 Insulin Aspart (NovoLOG SUPPLEMENTAL SCALE) 1 ACHS SLIDING SCALE SQ Last administered on 09/30/16 06:38; Start 09/30/16 at 07:00 Heparin Sodium (Porcine) (Heparin Inj) 5,000 units UNSCH PRN IV APTT LESS THAN 25; Start 09/30/16 at 09:15 Heparin Sodium (Porcine) 2500 units 2,500 units UNSCH PRN IV APTT 25 TO 39; Start 09/30/16 at 09:15 Heparin Sodium/ Dextrose (Heparin-D5W Inj) 250 ml @ 0 mls/hr TITRATE IV Last administered on 09/30/16 06:40; Start 09/30/16 at 03:15 A/P Problem List: (1) Pleural effusion ICD Code: J90 Status: Acute (2) Pneumonia ICD Code: J18.9 Status: Acute (3) CHF (congestive heart failure) ICD Code: I50.9 Status: Acute (4) Chest pain ICD Code: R07.9 Status: Acute (5) DM2 (diabetes mellitus, type 2) ICD Code: E11.9 Status: Chronic Assessment and Plan NSTEMI -Last troponin 2.37. -[employer] Mechan[employer] consulted and managing. -Continue with medical management since patient is clinically improving and has high risks of complication from the procedure. -Patient is on heparin drip, aspirin, carvedilol, Plavix, pravastatin, Nitropaste, and morphine when necessary. Patient will need to be chest pain- free. 2-D echo ordered. -Continue to monitor clinically. d/w her nurse at bedside. Acute on chronic CHF exacerbation BNP 3094 -Patient was given 2 doses of Lasix IV with improvement in breathing. -Will schedule oral Lasix. -Continue with strict ins and outs. -Echo ordered. Bilateral pleural effusion -Due to use NSTEMI. Right lower lobe PNA -CXR reviewed small right pleural effusion with associated volume loss and/or airspace consolidation and retrocardiac opacity may represent atelectasis or airspace consolidation. -Patient given cefepime and vancomycin given in ER -Cefepime was continued. Continue with cefepime pending clinical course. Acute respiratory failure -Due to pneumonia and CHF exacerbation. -See treatment as above. -CTA was negative for any PE. Hypokalemia -Replenished as needed. DM type 2 -Metformin and glipizide held due to MN -continue with accu check ACHS with SSI coverage Recurrent falls -May be due to current illness versus decondition. -Once patient improved clinically will consult physical therapist. DVT prophylaxis -Patient is on heparin drip. Discharge Planning Patient admitted for multiple issues including NSTEMI, CHF exacerbation, and pneumonia. Most likely she requires at least 3 days of hospitalization pending clinical course. Once stabilized she may require SNF placement. Problem Qualifiers (1) Pneumonia: Qualified Code: J18.1 - Pneumonia of right lower lobe due to infectious organism (2) CHF (congestive heart failure): Qualified Code: I50.9 - Acute on chronic congestive heart failure, unspecified congestive heart failure type Oumou Valente MD Sep 30, 2016 10:11
[2016-09-30] MEDS: MORPHINE SULFATE 4 MG/ML INJ IV PUSH PRN ×2 (10:21→16:34)
[2016-09-30 11:46] LABS: APTT (PATIENT) 33.8 SEC (24.3-30.1)
--- NOTE | 2016-09-30 16:28 | ECHRPT ---
Indication: Heart failure, unspecified CONCLUSIONS The left ventricular systolic function is severely reduced with an estimated ejection fraction in th e range of 25-30%. Gratis is severely hypokinetic. Mild concentric left ventricular hypertrophy. There is moderate tricuspid regurgitation. The estimated pulmonary arterial pressure is 53 mmHg Calcification of both mitral valve leaflets. Moderate mitral valve regurgitation. There is a moderate pericardial effusion present.Moderate mitral annular calcification. Moderate mitral valve regurgitation. There is moderate tricuspid regurgitation. The estimated pulmonary arterial pressure is 53 mmHg. The pulmonary valve is not well visualized. There is a trivial pericardial effusion present. BP: 127 / 97 HR: 91 Rhythm: Sinus MEASUREMENTS (Male / Female) Normal Values Technical Quality:Good 2D ECHO LV Diastolic Diameter PLAX 3.8 cm 4.2 - 5.9 / 3.9 - 5.3 cm LV Systolic Diameter PLAX 3.4 cm IVS Diastolic Thickness 1.1 cm 0.6 - 1.0 / 0.6 - 0.9 cm LVPW Diastolic Thickness 1.2 cm 0.6 - 1.0 / 0.6 - 0.9 cm LV Relative Wall Thickness 0.6 LVOT Diameter 1.7 cm LA Volume Index 37.9 cm/m 16 - 28 cm/m M-MODE Aortic Root Diameter MM 2.2 cm LA Systolic Diameter MM 3.8 cm LA Ao Ratio MM 1.7 AV Cusp Separation MM 1.6 cm DOPPLER AV Peak Velocity 69.5 cm/s AV Peak Gradient 1.9 mmHg LVOT Peak Velocity 43.4 cm/s LVOT Peak Gradient 0.8 mmHg AV Area Cont Eq pk 1.4 cm MV Peak Velocity 113.0 cm/s MV Peak Gradient 5.1 mmHg MV Mean Velocity 67.8 cm/s MV Mean Gradient 2.0 mmHg MR Peak Velocity 438.0 cm/s MR Peak Gradient 76.7 mmHg Mitral E Point Velocity 116.0 cm/s Mitral A Point Velocity 65.2 cm/s Mitral E to A Ratio 1.8 TR Peak Velocity 327.0 cm/s TR Peak Gradient 42.8 mmHg FINDINGS LEFT VENTRICLE The left ventricular systolic function is severely reduced with an estimated ejection fraction in th e range of 25-30%. Gratis is severely hypokinetic. Mild concentric left ventricular hypertrophy. There is moderate tricuspid regurgitation. The estimated pulmonary arterial pressure is 53 mmHg Calcification of both mitral valve leaflets. Moderate mitral valve regurgitation. There is a moderate pericardial effusion present. RIGHT VENTRICLE Normal right ventricular size and systolic function. LEFT ATRIUM The left atrial size is normal. RIGHT ATRIUM The right atrial size is normal. ATRIAL SEPTUM Normal atrial septal thickness without atrial level shunting by limited color doppler interrogation. AORTA The aortic root and proximal ascending aorta are normal in size on limited imaging. MITRAL VALVE Moderate mitral annular calcification. Moderate mitral valve regurgitation. AORTIC VALVE Trileaflet aortic valve. No aortic valve stenosis or regurgitation. TRICUSPID VALVE Structurally normal tricuspid valve. There is moderate tricuspid regurgitation. The estimated pulmonary arterial pressure is 53 mmHg. PULMONARY VALVE The pulmonary valve is not well visualized. VESSELS The inferior vena cava is normal in size. PERICARDIUM There is a trivial pericardial effusion present. Jerod Deluna MD (Electronically Signed) Final Date:30 September 2016 16:28
--- NOTE | 2016-09-30 17:26 | EKG ---
Date Performed: 09/29/2016 Time Performed: 17:16:12 PTAGE: 71 years EKG: SINUS TACHYCARDIA NONSPECIFIC ST & T-WAVE CHANGES ABNORMAL RHYTHM ECG PREVIOUS TRACING : 11/23/2015 08.25 Compared to previous tracing, the patient is now tachycardi c. DOCTOR: Bonita Christianson Interpretating Date/Time 09/30/2016 17:25:03
--- NOTE | 2016-09-30 17:27 | EKG ---
Date Performed: 09/30/2016 Time Performed: 04:22:14 PTAGE: 71 years EKG: Normal Sinus rhythm . Possible left ventricular hypertrophy Nonspecific ST-T wave changes Likely no significant change. A bnormal ECG PREVIOUS TRACING : 09/29/2016 22.47 DOCTOR: Bonita Christianson Interpretating Date/Time 09/30/2016 17:26:24
--- NOTE | 2016-09-30 17:27 | EKG ---
Date Performed: 09/29/2016 Time Performed: 22:47:33 PTAGE: 71 years EKG: Sinus rhythm ST DEVIATION AND MODERATE T-WAVE ABNORMALITY, CONSIDER LATERAL ISCHEMIA ABNORMAL ECG PREVIOUS TRACING : 09/29/2016 17.16 Compared to previous tracing, the ST changes are more gardenia rning for ischemia. DOCTOR: Bonita Christianson Interpretating Date/Time 09/30/2016 17:25:32
[2016-09-30 19:13] LABS: APTT (PATIENT) 36.4 SEC (24.3-30.1)
[2016-10-01] VITALS (7 sets, daily range): BP systolic 101–136; BP diastolic 54–83; PULSE 78–83; RESP 18–20; TEMP 95.2–95.9; O2SAT 92–100
[2016-10-01] MEDS: NITROGLYCERIN 2% OINT 1 GM PACKET TOPICAL SCH ×5 (00:01→23:25)
[2016-10-01 03:07] LABS: APTT (PATIENT) 41.8 SEC (24.3-30.1)
[2016-10-01] MEDS: CEFEPIME INJ 2,000 MG in SODIUM CHLORIDE 0.9% INJ 100 ML IV SCH ×2 (05:01→16:52)
[2016-10-01] MEDS: INSULIN ASPART SUPPLEMENTAL SCALE SQ SCH ×4 (06:53→21:00)
[2016-10-01 08:10] LABS: HEMATOCRIT 32.5 % (35.0-46.0); MEAN CELL VOLUME 82.4 FL (80.0-100.0); MEAN CORPUSCULAR HEMOGLOBIN 26.7 PG (27.0-34.0); MEAN CORPUSCULAR HGB CONC 32.3 % (32.0-36.0); PLATELET COUNT 161 TH/MM3 (150-450); RED BLOOD COUNT 3.95 MIL/MM3 (4.00-5.30); RED CELL DISTRIBUTION WIDTH 15.4 % (11.6-17.2); REVIEW FLAG FINAL; WHITE BLOOD COUNT 7.2 TH/MM3 (4.0-11.0)
[2016-10-01] MEDS: SODIUM CHLORIDE 0.9% FLUSH 10 ML FLUSH IV FLUSH SCH ×2 (08:16→21:55)
[2016-10-01] MEDS: CARVEDILOL 3.125 MG TAB PO SCH ×2 (08:16→21:00)
[2016-10-01] MEDS: PRAVASTATIN SOD 10 MG TAB PO SCH (08:16)
[2016-10-01] MEDS: ASPIRIN EC 81 MG TABEC PO SCH (08:16)
[2016-10-01] MEDS: CLOPIDOGREL 75 MG TAB PO SCH (08:16)
[2016-10-01 08:31] LABS: BICARBONATE 20.3 MEQ/L (21.0-32.0); MAGNESIUM 1.9 MG/DL (1.5-2.5); POTASSIUM 4.4 MEQ/L (3.5-5.1)
[2016-10-01] MEDS ORDERED: FUROSEMIDE 20 MG TAB PO SCH (09:00)
[2016-10-01 09:19] LABS: APTT (PATIENT) 35.2 SEC (24.3-30.1)
--- NOTE | 2016-10-01 11:42 | PD.CARD.PN ---
Subjective Subjective Remarks c/o SOB. no angina Objective Medications Current Medications Medications (Trade) Dose Ordered Sig/Unruly Route Start Time Stop Time Status Last Admin (NS Flush) 2 ml UNSCH PRN IV FLUSH 09/29/16 19:45 (NS Flush) 2 ml BID IV FLUSH 09/29/16 21:00 09/30/16 20:36 (Narcan Inj) 0.4 mg UNSCH PRN IV 09/29/16 19:45 Nitroglycerin 0.5 inch 0.5 inch Q6HR TOPICAL 09/30/16 00:00 10/01/16 05:01 (Maxipime Inj/NS Inj) 100 ml @ 200 mls/hr Q12H IV 09/30/16 06:00 10/01/16 05:01 (Ecotrin Ec) 81 mg DAILY PO 09/30/16 09:00 10/01/16 08:16 (Coreg) 3.125 mg BID PO 09/30/16 09:00 10/01/16 08:16 (Plavix) 75 mg DAILY PO 09/30/16 09:00 10/01/16 08:16 (Pravachol) 10 mg DAILY PO 09/30/16 09:00 10/01/16 08:16 (D50w (Vial) Inj) 50 ml UNSCH PRN IV 09/29/16 23:45 (Glucagon Inj) 1 mg UNSCH PRN OTHER 09/29/16 23:45 (Heparin Inj) 5,000 units UNSCH PRN IV 09/30/16 09:15 10/01/16 21:00 Heparin Sodium (Porcine) 2500 units 2,500 units UNSCH PRN IV 09/30/16 09:15 10/01/16 21:00 (Heparin-D5W Inj) 250 ml @ 0 mls/hr TITRATE IV 09/30/16 03:15 09/30/17 21:00 09/30/16 06:40 (Morphine Inj) 1 mg Q3H PRN IV PUSH 09/30/16 11:00 09/30/16 16:34 (Lasix Inj) 40 mg BID@09,18 IV PUSH 10/01/16 18:00 UNV (Prinivil) 5 mg DAILY PO 10/01/16 11:30 UNV (Lovenox Inj) 50 mg Q12H SQ 10/01/16 21:00 UNV Vital Signs / I&O Vital Signs Date Time Temp Pulse Resp B/P Pulse Ox O2 Delivery O2 Flow Rate FiO2 10/01/16 08:31 95.9 78 18 136/83 98 10/01/16 04:00 95.6 82 20 119/69 100 10/01/16 00:00 95.6 80 18 106/62 100 09/30/16 20:00 79 09/30/16 20:00 97.5 84 18 110/65 98 09/30/16 16:54 18 09/30/16 16:00 97.4 81 16 112/62 98 09/30/16 12:00 97.9 74 18 118/72 96 I/O 09/30/16 09/30/16 09/30/16 10/01/16 10/01/16 10/01/16 07:00 15:00 23:00 07:00 15:00 23:00 Intake Total 720 ml 776 ml 159 ml Output Total 900 ml 600 ml 100 ml Balance -900 ml 720 ml 176 ml 59 ml Intake Oral 720 ml 720 ml IV Total 56 ml 159 ml Output Urine Total 900 ml 600 ml 100 ml # Bowel Movements 1 Physical Exam Alert but not fully oriented. Mildly tachypneic. Too weak to sit up without assistance Chest: Diminished BS nancy right base CV S1 S2 RRR with 1/6 MR murmur Abd soft Ext: no edema Laboratory Laboratory Tests Test 09/30/16 10/01/16 10/01/16 10/01/16 18:26 02:43 06:33 09:00 Activated Partial 36.4 SEC 41.8 SEC 35.2 SEC Thromboplast Time White Blood Count 7.2 TH/MM3 Red Blood Count 3.95 MIL/MM3 Hemoglobin 10.5 GM/DL Hematocrit 32.5 % Mean Corpuscular Volume 82.4 FL Mean Corpuscular Hemoglobin 26.7 PG Mean Corpuscular Hemoglobin 32.3 % Concent Red Cell Distribution Width 15.4 % Platelet Count 161 TH/MM3 Mean Platelet Volume 9.2 FL Sodium Level 140 MEQ/L Potassium Level 4.4 MEQ/L Chloride Level 110 MEQ/L Carbon Dioxide Level 20.3 MEQ/L Anion Gap 10 MEQ/L Blood Urea Nitrogen 23 MG/DL Creatinine 1.02 MG/DL Estimat Glomerular Filtration 53 ML/MIN Rate Random Glucose 165 MG/DL Calcium Level 8.4 MG/DL Magnesium Level 1.9 MG/DL Troponin I 0.70 NG/ML Imaging Last [address] 09/30/16 0000 Signed Impressions: Service Date/Time: Friday, September 30, 2016 02:12 - CONCLUSION: No bleed or other acute intracranial abnormality. Atrophy and chronic white matter changes are noted. Chronic paranasal sinus disease. Abdirizak Bailey MD Carotid Artery Ultrasound 09/30/16 0000 Signed Impressions: Service Date/Time: Friday, September 30, 2016 09:05 - CONCLUSION: 1. Extensive atherosclerotic plaquing at the carotid bifurcations. Velocities suggest a mild degree of stenosis less than 50%%. The extensive plaquing at the bifurcation is somewhat out of proportion to the velocity measurements within the carotids. CTA of the carotid circulation is warranted for further assessment. 2. The left vertebral was not identified. aDmon Najera MD Chest X-Ray 09/29/16 1712 Signed Impressions: Service Date/Time: Thursday, September 29, 2016 17:32 - CONCLUSION: 1. Small right pleural effusion with associated volume loss and/or airspace consolidation. 2. Retrocardiac opacity may represent atelectasis or airspace consolidation. Abdirizak Estrada MD Assessment and Plan Problem List: (1) NSTEMI (non-ST elevated myocardial infarction) Assessment and Plan: troponin has improved. Poor candidate for cath (2) Acute systolic (congestive) heart failure Assessment and Plan: change diuretic to IV. Add ACEI (3) Pleural effusion Assessment and Plan: Due to CHF (4) Frail elderly Assessment and Plan: Needs code status addressed. Prognosis is poor. (5) PVD (peripheral vascular disease) Assessment and Plan: severe (6) Emphysema of lung Jerod Deluna MD Oct 01, 2016 11:42
[2016-10-01] MEDS: HEPARIN-D5W INJ 250 ML IV SCH (11:43)
--- NOTE | 2016-10-01 12:24 | EKG ---
Date Performed: 10/01/2016 Time Performed: 05:16:54 PTAGE: 71 years EKG: Sinus rhythm . Possible anterior infarct - age undetermined Inferior/lateral ST-T changes may be due to myocardial ischemia Abnormal ECG PREVIOUS TRACING : 09/30/2016 04.22 No significant change from previous tracing noted. DOCTOR: Sanchez Melton Interpretating Date/Time 10/01/2016 12:23:25
[2016-10-01] MEDS: LISINOPRIL 5 MG TAB PO SCH (14:07)
[2016-10-01] MEDS: POTASSIUM CHLORIDE 20 MEQ CONTROLLED RELEASE TAB PO SCH ×2 (14:07→16:52)
--- NOTE | 2016-10-01 15:40 | HHI.PR ---
Subjective Remarks Patient seen this morning around 11:30 AM. Says she is feeling all right. Denies any chest pain or shortness of breath. She is pleasant, oriented to place, but disoriented to date. Objective Vital Signs Date Time Temp Pulse Resp B/P Pulse Ox O2 Delivery O2 Flow Rate FiO2 10/01/16 12:43 95.9 81 18 131/70 98 10/01/16 08:31 95.9 78 18 136/83 98 10/01/16 04:00 95.6 82 20 119/69 100 10/01/16 00:00 95.6 80 18 106/62 100 09/30/16 20:00 79 09/30/16 20:00 97.5 84 18 110/65 98 09/30/16 16:54 18 09/30/16 16:00 97.4 81 16 112/62 98 I/O 09/30/16 09/30/16 09/30/16 10/01/16 10/01/16 10/01/16 07:00 15:00 23:00 07:00 15:00 23:00 Intake Total 720 ml 776 ml 159 ml 1020 ml Output Total 900 ml 600 ml 100 ml 600 ml Balance -900 ml 720 ml 176 ml 59 ml 420 ml Intake Oral 720 ml 720 ml 700 ml IV Total 56 ml 159 ml 320 ml Output Urine Total 900 ml 600 ml 100 ml 600 ml # Bowel Movements 1 Result Diagram: 10/01/16 0633 10/01/16 0633 Imaging Last Impressions Head CT 09/30/16 0000 Signed Impressions: Service Date/Time: Friday, September 30, 2016 02:12 - CONCLUSION: No bleed or other acute intracranial abnormality. Atrophy and chronic white matter changes are noted. Chronic paranasal sinus disease. Abdirizak Bailey MD Carotid Artery Ultrasound 09/30/16 0000 Signed Impressions: Service Date/Time: Friday, September 30, 2016 09:05 - CONCLUSION: 1. Extensive atherosclerotic plaquing at the carotid bifurcations. Velocities suggest a mild degree of stenosis less than 50%%. The extensive plaquing at the bifurcation is somewhat out of proportion to the velocity measurements within the carotids. CTA of the carotid circulation is warranted for further assessment. 2. The left vertebral was not identified. Damon Najera MD Chest X-Ray 09/29/16 2242 Signed Impressions: Service Date/Time: Thursday, September 29, 2016 17:32 - CONCLUSION: 1. Small right pleural effusion with associated volume loss and/or airspace consolidation. 2. Retrocardiac opacity may represent atelectasis or airspace consolidation. Abdirizak Estrada MD CT Angiography 09/29/16 0000 Signed Impressions: Service Date/Time: Thursday, September 29, 2016 18:52 - CONCLUSION: 1. Examination quality degraded by respiratory motion artifact. However, no PE is identified. 2. Moderate severity emphysema with large right and small left pleural effusion with associated compressive atelectasis. 3. Severe coronary artery calcification atherosclerotic disease of the aorta. Abdirizak Estrada MD Objective Remarks GENERAL: Patient lying in bed. No acute distress. Alert and oriented to place , however not to year or month. Appropriate conversation, however confused regarding multiple medical issues. SKIN: Warm and dry. HEAD: Normocephalic. EYES: No scleral icterus. No injection or drainage. NECK: Supple, trachea midline. No JVD or lymphadenopathy. CARDIOVASCULAR: Regular rate and rhythm without murmurs, gallops, or rubs. RESPIRATORY: Breath sounds equal bilaterally. No accessory muscle use. GASTROINTESTINAL: Abdomen soft, non-tender, nondistended. MUSCULOSKELETAL: No cyanosis, or edema. BACK: Nontender without obvious deformity. No CVA tenderness. A/P Assessment and Plan ===10/01/16 -Right lower lobe pneumonia. Repeat chest x-ray ordered. -Medications adjusted as per cardiology. -Patient still very weak. As per cardiology, will need to discuss CODE STATUS with family. Patient refuses SNF. //NSTEMI -Last troponin 2.37. -Pick And Shovel Man consulted and managing. -Continue with medical management since patient is clinically improving and has high risks of complication from the procedure. -Patient is on heparin drip, aspirin, carvedilol, Plavix, pravastatin, Nitropaste, and morphine when necessary. Patient will need to be chest pain- free. 2-D echo ordered. -Continue to monitor clinically. -Patient continues very weak. Medications adjusted. Monitor. -Cardiology indicates very poor prognosis, we'll need to discuss ongoing therapy with family. //Suspected dementia. -Patient very poor historian, disoriented to year and date. Possibly worsened by recent events. Obtain a monitor. //Acute on chronic CHF exacerbation BNP 3094 -Patient was given 2 doses of Lasix IV with improvement in breathing. -Will schedule oral Lasix. -Continue with strict ins and outs. -Echo with ejection fraction 20-30%. Increased pulmonary pressures suggested. Cardiology following. Appreciate assistance.. //Bilateral pleural effusion -Possibly Due to use NSTEMI. //Sepsis on admission. With fever, tachycardia //Right lower lobe PNA -CXR reviewed small right pleural effusion with associated volume loss and/or airspace consolidation and retrocardiac opacity may represent atelectasis or airspace consolidation. -Patient given cefepime and vancomycin given in ER -Continue cefepime. //Acute respiratory failure -Due to pneumonia and CHF exacerbation. -See treatment as above. -CTA was negative for any PE. //Hypokalemia -Improved after replacement. On daily replacement as per cardiology. Replenished as needed. //DM type 2 -Metformin and glipizide held due to MT -continue with accu check ACHS with SSI coverage //Recurrent falls -May be due to current illness versus decondition. -Once patient improved clinically will consult physical therapist. //DVT prophylaxis : -Patient is on heparin drip. Discharge Planning Patient admitted for multiple issues including NSTEMI, CHF exacerbation, and pneumonia. Most likely she requires at least 3 days of hospitalization pending clinical course. Once stabilized she will most likely require SNF placement. Attending Attestation Eren Link MD Oct 01, 2016 15:40
--- NOTE | 2016-10-01 16:35 | RADRPT ---
EXAM DATE/TIME: 10/01/2016 15:42 [facility] COMPARISON: CHEST SINGLE AP, September 29, 2016, 17:32. INDICATIONS : Cough, congestion MEDICAL HISTORY : Congestive heart failure. Myocardial infarction. Hypertension. cva SURGICAL HISTORY : None. ENCOUNTER: Initial ACUITY: 2 days PAIN SCORE: 0/10 LOCATION: Bilateral chest FINDINGS: Cardiac silhouette is enlarged with ill-defined central pulmonary vascularity. Redemonstration of sma ll to moderate right pleural effusion with associated right lower lobe airspace disease. Redemonstrat ion retrocardiac opacity. Remainder of exam is unchanged. CONCLUSION: 1. Cardiomegaly with mild positive fluid balance. 2. Small to moderate right pleural effusion and associated right lower lobe airspace disease. 3. Redemonstration of retrocardiac opacity likely reflecting consolidation or atelectasis. Marshall Nunn MD on October 01, 2016 at 16:31 Board Certified Radiologist. This report was verified electronically.
[2016-10-01] MEDS: FUROSEMIDE 40 MG/4 ML VIAL IV PUSH SCH (16:52)
[2016-10-01] MEDS: MORPHINE SULFATE 4 MG/ML INJ IV PUSH PRN ×2 (16:53→23:38)
[2016-10-01] MEDS ORDERED: METFORMIN HOLD POST IV CONTRAST SCH (17:15)
[2016-10-01] MEDS ORDERED: IOHEXOL 350 MG/ML 10 ML VIAL (for RAD DIAG) IV ONE (17:35)
[2016-10-01] MEDS: ENOXAPARIN SODIUM 60 MG/0.6 ML SYRINGE SQ SCH (21:56)
--- NOTE | 2016-10-01 22:35 | RADRPT ---
EXAM DATE/TIME: 10/01/2016 17:16 [facility] COMPARISON: US CAROTID ARTERIES, September 30, 2016, 9:05. INDICATIONS : Evaluate for syncope. IV CONTRAST: 74 cc Omnipaque 350 (iohexol) IV RADIATION DOSE: 51.78 CTDIvol (mGy) MEDICAL HISTORY : Cardiovascular disease. Hypertension. Diabetes mellitus type 2. SURGICAL HISTORY : None. ENCOUNTER: Initial ACUITY: 1 day PAIN SCALE: 2/10 LOCATION: Bilateral neck region. Elevated flow velocities and ICA/CCA ratios have been found to correlate with increased degrees of vessel stenosis, calculated as percentage of diameter relative to a normal segment of distal ICA/CCA. TECHNIQUE: Volumetric scanning was performed using a multirow detector CT scanner. The data was post processed with a variety of visualization algorithms including full-volume maximum intensity projection, multip lanar sliding thin-slab reformation, curved-planar reformation, and surface-rendering techniques. Us ing automated exposure control and adjustment of the mA and/or kV according to patient size, radiatio n dose was kept as low as reasonably achievable to obtain optimal diagnostic quality images. FINDINGS: AORTIC ARCH: There is a three-vessel origin of the great vessels from the aorta. There is moderate to severe ather osclerotic calcification of the arch and severe atherosclerotic calcification in the proximal subclav dylan artery with at least 50% stenosis. RIGHT CAROTID: There is moderate calcified and noncalcified plaque throughout the common carotid artery. There is se vashti calcified plaque in the carotid bulb and proximal internal carotid artery with estimated 60% alberto nosis based on NASCET criteria. Sternal carotid artery demonstrates no significant abnormality. LEFT CAROTID: There is mild to moderate calcified and noncalcified plaque throughout the common carotid artery with severe calcified plaque in the carotid bulb. There is estimated 40% stenosis in the proximal interna l carotid artery. External carotid artery demonstrates no significant abnormality. VERTEBRALS: Left vertebral artery is occluded throughout most of its course. Within C2 transverse foramen there i s a small amount of blood flow visualized. Right vertebral artery demonstrates no acute finding. Ther e is calcification near the origin. There is a large right pleural effusion and small left pleural effusion that is partially visual ized. There is bilateral emphysema. Mucoperiosteal thickening is present within the right maxillary s inus. The intracranial structures demonstrate no acute finding. CONCLUSION: 1. Moderate to severe calcified and noncalcified plaque within the carotid arteries bilaterally. Ther e is estimated 60% stenosis in the left internal carotid artery and approximately 40% stenosis in the right internal carotid artery proximally. 2. The left vertebral artery is occluded. 3. There is severe atherosclerotic disease and severe stenosis of the proximal left subclavian artery . 4. A large right and small left pleural effusion is present. Abdirizak Estrada MD on October 01, 2016 at 22:24 Board Certified Radiologist. This report was verified electronically.
[2016-10-02] VITALS: BP 89/51; PULSE 76; RESP 18; TEMP 97; O2SAT 94
[2016-10-02 04:00] VITALS: BP 119/63; PULSE 81; RESP 20; TEMP 96.2; O2SAT 90
[2016-10-02] MEDS: CEFEPIME INJ 2,000 MG in SODIUM CHLORIDE 0.9% INJ 100 ML IV SCH ×2 (05:45→18:22)
[2016-10-02] MEDS: NITROGLYCERIN 2% OINT 1 GM PACKET TOPICAL SCH ×3 (05:48→18:22)
[2016-10-02] MEDS: INSULIN ASPART SUPPLEMENTAL SCALE SQ SCH ×4 (05:52→21:09)
[2016-10-02 08:00] VITALS: BP 124/62; PULSE 78; RESP 20; TEMP 96.3; O2SAT 91
[2016-10-02] MEDS: FUROSEMIDE 40 MG/4 ML VIAL IV PUSH SCH ×2 (08:25→18:23)
[2016-10-02] MEDS: POTASSIUM CHLORIDE 20 MEQ CONTROLLED RELEASE TAB PO SCH ×3 (08:26→18:22)
[2016-10-02] MEDS: ASPIRIN EC 81 MG TABEC PO SCH (08:26)
[2016-10-02] MEDS: LISINOPRIL 5 MG TAB PO SCH (08:26)
[2016-10-02] MEDS: CLOPIDOGREL 75 MG TAB PO SCH (08:26)
[2016-10-02] MEDS: ENOXAPARIN SODIUM 60 MG/0.6 ML SYRINGE SQ SCH ×2 (08:26→21:07)
[2016-10-02] MEDS: SODIUM CHLORIDE 0.9% FLUSH 10 ML FLUSH IV FLUSH SCH ×2 (08:26→21:00)
[2016-10-02] MEDS: PRAVASTATIN SOD 10 MG TAB PO SCH (08:26)
[2016-10-02] MEDS: CARVEDILOL 3.125 MG TAB PO SCH ×2 (08:26→21:07)
--- NOTE | 2016-10-02 09:56 | PD.CARD.PN ---
Subjective Subjective Remarks no complaints Objective Medications Current Medications Medications (Trade) Dose Ordered Sig/Unruly Route Start Time Stop Time Status Last Admin (NS Flush) 2 ml UNSCH PRN IV FLUSH 09/29/16 19:45 (NS Flush) 2 ml BID IV FLUSH 09/29/16 21:00 10/02/16 08:26 (Narcan Inj) 0.4 mg UNSCH PRN IV 09/29/16 19:45 Nitroglycerin 0.5 inch 0.5 inch Q6HR TOPICAL 09/30/16 00:00 10/02/16 05:48 (Maxipime Inj/NS Inj) 100 ml @ 200 mls/hr Q12H IV 09/30/16 06:00 10/02/16 05:45 (Ecotrin Ec) 81 mg DAILY PO 09/30/16 09:00 10/02/16 08:26 (Coreg) 3.125 mg BID PO 09/30/16 09:00 10/02/16 08:26 (Plavix) 75 mg DAILY PO 09/30/16 09:00 10/02/16 08:26 (Pravachol) 10 mg DAILY PO 09/30/16 09:00 10/02/16 08:26 (D50w (Vial) Inj) 50 ml UNSCH PRN IV 09/29/16 23:45 (Glucagon Inj) 1 mg UNSCH PRN OTHER 09/29/16 23:45 (Morphine Inj) 1 mg Q3H PRN IV PUSH 09/30/16 11:00 10/01/16 23:38 (Lasix Inj) 40 mg BID@09,18 IV PUSH 10/01/16 18:00 10/02/16 08:25 (Prinivil) 5 mg DAILY PO 10/01/16 11:30 10/02/16 08:26 (Lovenox Inj) 50 mg Q12H SQ 10/01/16 21:00 10/02/16 08:26 (KCl) 20 meq TID PO 10/01/16 13:00 10/02/16 08:26 Miscellaneous Information HOLD METFORMIN FOR... Q24H .XX 10/01/16 17:15 10/03/16 17:14 Vital Signs / I&O Vital Signs Date Time Temp Pulse Resp B/P Pulse Ox O2 Delivery O2 Flow Rate FiO2 10/02/16 08:00 96.3 78 20 124/62 91 10/02/16 04:00 96.2 81 20 119/63 90 10/02/16 00:00 97.0 76 18 89/51 94 10/01/16 20:00 95.2 79 18 101/54 94 10/01/16 18:06 81 10/01/16 16:00 95.6 83 18 129/78 92 10/01/16 12:43 95.9 81 18 131/70 98 I/O 10/01/16 10/01/16 10/01/16 10/02/16 10/02/16 10/02/16 07:00 15:00 23:00 07:00 15:00 23:00 Intake Total 159 ml 1020 ml Output Total 100 ml 600 ml 800 ml Balance 59 ml 420 ml -800 ml Intake Oral 700 ml IV Total 159 ml 320 ml Output Urine Total 100 ml 600 ml 800 ml Physical Exam Alert but not fully oriented (year 2003). Mildly tachypneic. Too weak to sit up without assistance Chest: Diminished BS nancy right base CV S1 S2 RRR with 1/6 MR murmur Abd soft Ext: no edema Laboratory Laboratory Tests Test 10/01/16 15:04 Activated Partial 42.0 SEC Thromboplast Time Assessment and Plan Problem List: (1) NSTEMI (non-ST elevated myocardial infarction) (2) Acute systolic (congestive) heart failure (3) Pleural effusion (4) Frail elderly (5) PVD (peripheral vascular disease) (6) Emphysema of lung Assessment and Plan check BMP in AM Jerod Deluna MD Oct 02, 2016 09:56
[2016-10-02 11:59] VITALS: BP 107/52; PULSE 74; RESP 20; O2SAT 95
[2016-10-02 14:13] LABS: AUTOMATED NEUTROPHIL # 7.1 TH/MM3 (1.8-7.7); BASOPHIL # 0.1 TH/MM3 (0-0.2); BASOPHIL % 0.7 % (0.0-2.0); EOSINOPHIL # 0.2 TH/MM3 (0-0.4); EOSINOPHIL % 1.7 % (0.0-4.0); HEMATOCRIT 38.4 % (35.0-46.0); HEMO FLAGS DIFF FINAL; LYMPH % 9.7 % (9.0-44.0); LYMPHOCYTE # 0.9 TH/MM3 (1.0-4.8); MEAN CELL VOLUME 82.5 FL (80.0-100.0); MEAN CORPUSCULAR HEMOGLOBIN 26.8 PG (27.0-34.0); MEAN CORPUSCULAR HGB CONC 32.5 % (32.0-36.0); MONO % 8.5 % (0.0-8.0); NEUT % 79.4 % (16.0-70.0); PLATELET COUNT 212 TH/MM3 (150-450); RED BLOOD COUNT 4.65 MIL/MM3 (4.00-5.30); RED CELL DISTRIBUTION WIDTH 15.8 % (11.6-17.2); WHITE BLOOD COUNT 8.9 TH/MM3 (4.0-11.0)
[2016-10-02 14:18] LABS: BICARBONATE 28.2 MEQ/L (21.0-32.0); MAGNESIUM 2.2 MG/DL (1.5-2.5); POTASSIUM 4.7 MEQ/L (3.5-5.1)
[2016-10-02 15:58] VITALS: BP 128/66; PULSE 81; RESP 20; TEMP 96; O2SAT 96
[2016-10-02 21:30] VITALS: BP 132/65; PULSE 79; RESP 20; TEMP 97.8; O2SAT 94
--- NOTE | 2016-10-02 23:57 | HHI.PR ---
Subjective Remarks Patient seen today around noon. says she is feeling all right. Confused regarding medical conditions as before. No acute changes..Discussed with corrections caseworker. Try to contact family without success. Objective Vital Signs Date Time Temp Pulse Resp B/P Pulse Ox O2 Delivery O2 Flow Rate FiO2 10/02/16 15:58 96.0 81 20 128/66 96 10/02/16 11:59 74 20 107/52 95 10/02/16 08:00 96.3 78 20 124/62 91 10/02/16 04:00 96.2 81 20 119/63 90 10/02/16 00:00 97.0 76 18 89/51 94 I/O 10/01/16 10/01/16 10/01/16 10/02/16 10/02/16 10/02/16 07:00 15:00 23:00 07:00 15:00 23:00 Intake Total 159 ml 1020 ml 100 ml Output Total 100 ml 600 ml 800 ml 1400 ml Balance 59 ml 420 ml -800 ml -1400 ml 100 ml Intake Oral 700 ml IV Total 159 ml 320 ml 100 ml Output Urine Total 100 ml 600 ml 800 ml 1400 ml # Bowel Movements 1 Result Diagram: 10/02/16 1312 10/02/16 1312 Objective Remarks GENERAL: Patient lying in bed. No acute distress. Alert and oriented to place , however not to year or month. Appropriate conversation, however confused regarding multiple medical issues.unchanged from yesterday. SKIN: Warm and dry. HEAD: Normocephalic. EYES: No scleral icterus. No injection or drainage. NECK: Supple, trachea midline. No JVD or lymphadenopathy. CARDIOVASCULAR: Regular rate and rhythm without murmurs, gallops, or rubs. RESPIRATORY: Breath sounds equal bilaterally. No accessory muscle use. GASTROINTESTINAL: Abdomen soft, non-tender, nondistended. MUSCULOSKELETAL: No cyanosis, or edema. BACK: Nontender without obvious deformity. No CVA tenderness. A/P Assessment and Plan ===10/02/16 -Right lower lobe pneumonia. Repeat chest x-ray with no acute change. -Continue medications as per cardiology. -Attempted to call family, no answer. Appreciate case management assistance. Dementia. With vertebral artery stenosis. Consult neurology. Subclavian stenosis. As on imaging. Not clinically relevant. Continue to monitor //NSTEMI -Last troponin 2.37. -Logging Truck Driver consulted and managing. -Continue with medical management since patient is clinically improving and has high risks of complication from the procedure. -Patient is on heparin drip, aspirin, carvedilol, Plavix, pravastatin, Nitropaste, and morphine when necessary. Patient will need to be chest pain- free. 2-D echo ordered. -Continue to monitor clinically. -Patient continues very weak. Medications adjusted. Monitor. -Cardiology indicates very poor prognosis, we'll need to discuss ongoing therapy with family. //Suspected dementia. -Patient very poor historian, disoriented to year and date. Possibly worsened by recent events. Obtain a monitor. //Acute on chronic CHF exacerbation BNP 3094 -Patient was given 2 doses of Lasix IV with improvement in breathing. -Will schedule oral Lasix. -Continue with strict ins and outs. -Echo with ejection fraction 20-30%. Increased pulmonary pressures suggested. Cardiology following. Appreciate assistance.. //Bilateral pleural effusion -Possibly Due to use NSTEMI. //Sepsis on admission. With fever, tachycardia //Right lower lobe PNA -CXR reviewed small right pleural effusion with associated volume loss and/or airspace consolidation and retrocardiac opacity may represent atelectasis or airspace consolidation. -Patient given cefepime and vancomycin given in ER -Continue cefepime. //Acute respiratory failure -Due to pneumonia and CHF exacerbation. -See treatment as above. -CTA was negative for any PE. //Hypokalemia -Improved after replacement. On daily replacement as per cardiology. Replenished as needed. //DM type 2 -Metformin and glipizide held due to [place] -continue with accu check ACHS with SSI coverage //Recurrent falls -May be due to current illness versus decondition. -Once patient improved clinically will consult physical therapist. //DVT prophylaxis : Continues on Lovenox. Discharge Planning Patient admitted for multiple issues including NSTEMI, CHF exacerbation, and pneumonia. Most likely she requires at least 3 days of hospitalization pending clinical course. Once stabilized she will most likely require SNF placement. Eren Link MD Oct 02, 2016 23:57
[2016-10-03] VITALS (7 sets, daily range): BP systolic 106–130; BP diastolic 57–64; PULSE 70–85; RESP 20–22; TEMP 95.5–98.1; O2SAT 93–97
[2016-10-03] MEDS: NITROGLYCERIN 2% OINT 1 GM PACKET TOPICAL SCH ×5 (00:27→23:58)
[2016-10-03] MEDS: CEFEPIME INJ 2,000 MG in SODIUM CHLORIDE 0.9% INJ 100 ML IV SCH ×2 (05:30→17:41)
[2016-10-03] MEDS: INSULIN ASPART SUPPLEMENTAL SCALE SQ SCH ×4 (05:33→20:14)
[2016-10-03] MEDS ORDERED: FUROSEMIDE 40 MG/4 ML VIAL IV PUSH ONE (06:15)
[2016-10-03] MEDS: PRAVASTATIN SOD 10 MG TAB PO SCH (08:12)
[2016-10-03] MEDS: ASPIRIN EC 81 MG TABEC PO SCH (08:12)
[2016-10-03] MEDS: FUROSEMIDE 40 MG/4 ML VIAL IV PUSH SCH ×2 (08:12→17:41)
[2016-10-03] MEDS: SODIUM CHLORIDE 0.9% FLUSH 10 ML FLUSH IV FLUSH SCH ×2 (08:12→19:52)
[2016-10-03] MEDS: CLOPIDOGREL 75 MG TAB PO SCH (08:12)
[2016-10-03] MEDS: LISINOPRIL 5 MG TAB PO SCH (08:12)
[2016-10-03] MEDS: CARVEDILOL 3.125 MG TAB PO SCH ×2 (08:13→19:51)
[2016-10-03] MEDS: ENOXAPARIN SODIUM 60 MG/0.6 ML SYRINGE SQ SCH ×2 (08:14→19:52)
--- NOTE | 2016-10-03 08:19 | PD.CARD.PN ---
Subjective Subjective Remarks o new complaints Objective Medications Current Medications Medications (Trade) Dose Ordered Sig/Unruly Route Start Time Stop Time Status Last Admin (NS Flush) 2 ml UNSCH PRN IV FLUSH 09/29/16 19:45 (NS Flush) 2 ml BID IV FLUSH 09/29/16 21:00 10/02/16 21:00 (Narcan Inj) 0.4 mg UNSCH PRN IV 09/29/16 19:45 Nitroglycerin 0.5 inch 0.5 inch Q6HR TOPICAL 09/30/16 00:00 10/03/16 05:30 (Maxipime Inj/NS Inj) 100 ml @ 200 mls/hr Q12H IV 09/30/16 06:00 10/03/16 05:30 (Ecotrin Ec) 81 mg DAILY PO 09/30/16 09:00 10/02/16 08:26 (Coreg) 3.125 mg BID PO 09/30/16 09:00 10/02/16 21:07 (Plavix) 75 mg DAILY PO 09/30/16 09:00 10/02/16 08:26 (Pravachol) 10 mg DAILY PO 09/30/16 09:00 10/02/16 08:26 (D50w (Vial) Inj) 50 ml UNSCH PRN IV 09/29/16 23:45 (Glucagon Inj) 1 mg UNSCH PRN OTHER 09/29/16 23:45 (Morphine Inj) 1 mg Q3H PRN IV PUSH 09/30/16 11:00 10/01/16 23:38 (Lasix Inj) 40 mg BID@09,18 IV PUSH 10/01/16 18:00 10/02/16 18:23 (Prinivil) 5 mg DAILY PO 10/01/16 11:30 10/02/16 08:26 (Lovenox Inj) 50 mg Q12H SQ 10/01/16 21:00 10/02/16 21:07 Miscellaneous Information HOLD METFORMIN FOR... Q24H .XX 10/01/16 17:15 10/03/16 17:14 (KCl) 20 meq BID PO 10/03/16 09:00 UNV Vital Signs / I&O Vital Signs Date Time Temp Pulse Resp B/P Pulse Ox O2 Delivery O2 Flow Rate FiO2 10/03/16 04:30 98.1 76 22 128/64 93 10/03/16 00:30 85 10/03/16 00:00 97.7 80 21 130/60 93 10/02/16 21:30 97.8 79 20 132/65 94 10/02/16 15:58 96.0 81 20 128/66 96 10/02/16 11:59 74 20 107/52 95 I/O 10/02/16 10/02/16 10/02/16 10/03/16 10/03/16 10/03/16 07:00 15:00 23:00 07:00 15:00 23:00 Intake Total 850 ml 400 ml Output Total 800 ml 1400 ml Balance -800 ml -1400 ml 850 ml 400 ml Intake Oral 750 ml 400 ml IV Total 100 ml Output Urine Total 800 ml 1400 ml # Voids 0 1 # Bowel Movements 1 0 1 Physical Exam Alert but not fully oriented (year 2003). Mildly tachypneic. Too weak to sit up without assistance, Coarse cough Chest: Diminished slight right base CV S1 S2 RRR with 1/6 MR murmur Abd soft Ext: no edema Laboratory Laboratory Tests Test 10/02/16 13:12 White Blood Count 8.9 TH/MM3 Red Blood Count 4.65 MIL/MM3 Hemoglobin 12.5 GM/DL Hematocrit 38.4 % Mean Corpuscular Volume 82.5 FL Mean Corpuscular Hemoglobin 26.8 PG Mean Corpuscular Hemoglobin 32.5 % Concent Red Cell Distribution Width 15.8 % Platelet Count 212 TH/MM3 Mean Platelet Volume 9.4 FL Neutrophils (%) (Auto) 79.4 % Lymphocytes (%) (Auto) 9.7 % Monocytes (%) (Auto) 8.5 % Eosinophils (%) (Auto) 1.7 % Basophils (%) (Auto) 0.7 % Neutrophils # (Auto) 7.1 TH/MM3 Lymphocytes # (Auto) 0.9 TH/MM3 Monocytes # (Auto) 0.8 TH/MM3 Eosinophils # (Auto) 0.2 TH/MM3 Basophils # (Auto) 0.1 TH/MM3 CBC Comment DIFF FINAL Differential Comment Sodium Level 139 MEQ/L Potassium Level 4.7 MEQ/L Chloride Level 103 MEQ/L Carbon Dioxide Level 28.2 MEQ/L Anion Gap 8 MEQ/L Blood Urea Nitrogen 25 MG/DL Creatinine 1.13 MG/DL Estimat Glomerular Filtration 47 ML/MIN Rate Random Glucose 165 MG/DL Calcium Level 9.1 MG/DL Magnesium Level 2.2 MG/DL Assessment and Plan Problem List: (1) NSTEMI (non-ST elevated myocardial infarction) (2) Acute systolic (congestive) heart failure (3) Pleural effusion (4) Frail elderly (5) PVD (peripheral vascular disease) (6) Emphysema of lung Assessment and Plan BMP pending. I will return Thursday. Please call [facility] coverage over the weekend if assistance needed Jerod Deluna MD Oct 03, 2016 08:19
--- NOTE | 2016-10-03 09:01 | PD.CONS ---
History of Present Illness Service Neurology Consult Requested By medical Reason for Consult confusion Primary Care Physician Unknown History of Present Illness 71 year old female patient with a past medical history which includes Peripheral vascular disease, CVA, Non-ST elevation myocardial infarction, CAD, Hypertension and CHF. did not why she was in the hospital, confusion since admission. followed by cardiology for nstemi. conservative tx per cardiology. on high dose lovenox, plavix and aspirin. had ct brain, no ich. cta's showed multi-vessel dz. left vert occlusion, subclavian stenosis, carotid stenosis. ef 25-30% hx of previous left mca stroke 2016. neurology consulted for confusion pt poor hx. Review of Systems Except as stated in HPI: all other systems reviewed are Neg Past Family Social History Past Medical History Peripheral vascular disease CVA Non-ST elevation myocardial infarction CAD Hypertension CHF Diabetes mellitus type 2 Past Surgical History Cataract surgery Right Achilles tendon surgery Allergies: Coded Allergies: No Known Allergies (Unverified , 11/20/15) Family History mi Social History Lives alone quit smoking Denies ETOH use or illicit drug use Review of Systems All other ROS: ROS reviewed as documented in chart Past Family Social History Allergies: Coded Allergies: No Known Allergies (Unverified , 11/20/15) Active Ordered Medications Current Medications Medications (Trade) Dose Ordered Sig/Unruly Route Start Time Stop Time Status Last Admin (NS Flush) 2 ml UNSCH PRN IV FLUSH 09/29/16 19:45 (NS Flush) 2 ml BID IV FLUSH 09/29/16 21:00 10/03/16 08:12 (Narcan Inj) 0.4 mg UNSCH PRN IV 09/29/16 19:45 Nitroglycerin 0.5 inch 0.5 inch Q6HR TOPICAL 09/30/16 00:00 10/03/16 05:30 (Maxipime Inj/NS Inj) 100 ml @ 200 mls/hr Q12H IV 09/30/16 06:00 10/03/16 05:30 (Ecotrin Ec) 81 mg DAILY PO 09/30/16 09:00 10/03/16 08:12 (Coreg) 3.125 mg BID PO 09/30/16 09:00 10/03/16 08:13 (Plavix) 75 mg DAILY PO 09/30/16 09:00 10/03/16 08:12 (Pravachol) 10 mg DAILY PO 09/30/16 09:00 10/03/16 08:12 (D50w (Vial) Inj) 50 ml UNSCH PRN IV 09/29/16 23:45 (Glucagon Inj) 1 mg UNSCH PRN OTHER 09/29/16 23:45 (Morphine Inj) 1 mg Q3H PRN IV PUSH 09/30/16 11:00 10/01/16 23:38 (Lasix Inj) 40 mg BID@09,18 IV PUSH 10/01/16 18:00 10/03/16 08:12 (Prinivil) 5 mg DAILY PO 10/01/16 11:30 10/03/16 08:12 (Lovenox Inj) 50 mg Q12H SQ 10/01/16 21:00 10/03/16 08:14 Miscellaneous Information HOLD METFORMIN FOR... Q24H .XX 10/01/16 17:15 10/03/16 17:14 (KCl) 20 meq BID PO 10/03/16 09:00 Exam I&O / VS 10/02/16 10/02/16 10/03/16 15:00 23:00 07:00 Intake Total 850 ml 400 ml Output Total 1400 ml Balance -1400 ml 850 ml 400 ml Intake Oral 750 ml 400 ml IV Total 100 ml Output Urine Total 1400 ml # Voids 0 1 # Bowel Movements 1 0 1 Vital Signs Date Time Temp Pulse Resp B/P Pulse Ox O2 Delivery O2 Flow Rate FiO2 10/03/16 04:30 98.1 76 22 128/64 93 10/03/16 00:30 85 10/03/16 00:00 97.7 80 21 130/60 93 10/02/16 21:30 97.8 79 20 132/65 94 10/02/16 15:58 96.0 81 20 128/66 96 10/02/16 11:59 74 20 107/52 95 General: Mild distress Eye: PERRL, Normal conjuctiva Cardiology: Regular Rhythm Neurologic: Alert, Normal motor Exam Comments alert, ox 1. follows some simple request, tachypneic and coughing throughout interview, able to name simple objects, inattentive, vff grossly full, face sym , eomi, hector to gravity but bradykinesia, msr sym Review/Management Diagnosis/Plan: (1) Encephalopathy, metabolic Plan: cardiopulmonary dz appears to be main issue and effecting cognition lacunar infarct cannot be excluded, however on 2 antiplatelets, and high dose lovenox recs eeg mri brain if feasible cardiopulm tx defer consulting vascular surgery for left subclavian and carotid dz to primary. does not appear to be good surgical candidate at present, also, doubt these findings are clinically relevant at present follow exam (2) Chronic left arterial ischemic stroke, MCA (middle cerebral artery) Plan: 11/2015 on aspirin/plavix (3) Acute systolic (congestive) heart failure Plan: ef 25-30% (4) NSTEMI (non-ST elevated myocardial infarction) Plan: cardio following Seth Guzman MD Oct 03, 2016 09:01
[2016-10-03] MEDS: POTASSIUM CHLORIDE 20 MEQ CONTROLLED RELEASE TAB PO SCH ×2 (09:59→19:51)
[2016-10-03 11:01] LABS: BICARBONATE 24.1 MEQ/L (21.0-32.0); POTASSIUM 4.7 MEQ/L (3.5-5.1)
--- NOTE | 2016-10-03 16:47 | RADRPT ---
EXAM DATE/TIME: 10/03/2016 16:00 [place] COMPARISON: No previous studies available for comparison. INDICATIONS : CVA. MEDICAL HISTORY : Diabetes mellitus type 2. Hypertension. Peripheral vascular disease. SURGICAL HISTORY : Rt achilles tendon/bilat eye surgery. ENCOUNTER: Initial ACUITY: 2 day PAIN SCORE: LOCATION: head TECHNIQUE: Multiplanar, multisequence MRI of the brain was performed without contrast. FINDINGS: CEREBRUM: The ventricles are normal for age. No evidence of midline shift, mass lesion, hemorrhage or acute in farction. No extraaxial fluid collections are seen. The pituitary gland and suprasellar cistern are normal in configuration. WHITE MATTER: Mild signal abnormalities are seen in the white matter. POSTERIOR FOSSA: The cerebellum and brainstem are intact. The 4th ventricle is midline. The cerebellopontine angle is unremarkable. The cerebellar tonsils are normal in position. DIFFUSION IMAGING: No focal areas of restricted diffusion are seen. No evidence of acute infarction. EXTRACRANIAL: The visualized portions of the orbits and paranasal sinuses are unremarkable. CONCLUSION: 1. No acute findings. No recent infarct. Mild chronic white matter ischemic changes. Rick Lee MD on October 03, 2016 at 16:35 Board Certified Radiologist. This report was verified electronically.
--- NOTE | 2016-10-03 18:48 | HHI.PR ---
Subjective Remarks Patient seen today around 3 PM. Daughter at bedside. We discussed multiple medical issues, poor prognosis, and family reports that patient's wishes have always been palliative if she is in such a position. Daughter agrees with consultation to palliative care and hospice consultation. Objective Vital Signs Date Time Temp Pulse Resp B/P Pulse Ox O2 Delivery O2 Flow Rate FiO2 10/03/16 16:00 10/03/16 12:43 81 10/03/16 12:00 95.5 70 20 106/57 95 10/03/16 08:00 96.8 75 20 122/59 97 10/03/16 04:30 98.1 76 22 128/64 93 10/03/16 00:30 85 10/03/16 00:00 97.7 80 21 130/60 93 10/02/16 21:30 97.8 79 20 132/65 94 I/O 10/02/16 10/02/16 10/02/16 10/03/16 10/03/16 10/03/16 07:00 15:00 23:00 07:00 15:00 23:00 Intake Total 850 ml 400 ml Output Total 800 ml 1400 ml Balance -800 ml -1400 ml 850 ml 400 ml Intake Oral 750 ml 400 ml IV Total 100 ml Output Urine Total 800 ml 1400 ml # Voids 0 1 # Bowel Movements 1 0 1 3 Result Diagram: 10/02/16 1312 10/03/16 0739 Objective Remarks GENERAL: Patient lying in bed. No acute distress. Alert and oriented to place , however not to year or month. Appropriate conversation, however confused regarding multiple medical issues.again, unchanged SKIN: Warm and dry. HEAD: Normocephalic. EYES: No scleral icterus. No injection or drainage. NECK: Supple, trachea midline. No JVD or lymphadenopathy. CARDIOVASCULAR: Regular rate and rhythm without murmurs, gallops, or rubs. RESPIRATORY: Breath sounds equal bilaterally. No accessory muscle use. GASTROINTESTINAL: Abdomen soft, non-tender, nondistended. MUSCULOSKELETAL: No cyanosis, or edema. BACK: Nontender without obvious deformity. No CVA tenderness. A/P Assessment and Plan ===10/03/16 -After long discussion with family. Consult palliative care, hospice. -Possible seizure-like activity. Antiepileptics as per neurology. Appreciate assistance. //NSTEMI -Last troponin 2.37. -Clinical Education Coordinator consulted and managing. -Continue with medical management since patient is clinically improving and has high risks of complication from the procedure. -Patient is on heparin drip, aspirin, carvedilol, Plavix, pravastatin, Nitropaste, and morphine when necessary. Patient will need to be chest pain- free. 2-D echo ordered. -Continue to monitor clinically. -Patient continues very weak. Medications adjusted. Monitor. -Cardiology indicates very poor prognosis, we'll need to discuss ongoing therapy with family. //Suspected dementia. -Patient very poor historian, disoriented to year and date. Possibly worsened by recent events. Obtain a monitor. //Acute on chronic CHF exacerbation BNP 3094 -Patient was given 2 doses of Lasix IV with improvement in breathing. -Will schedule oral Lasix. -Continue with strict ins and outs. -Echo with ejection fraction 20-30%. Increased pulmonary pressures suggested. Cardiology following. Appreciate assistance.. //Bilateral pleural effusion -Possibly Due to use NSTEMI. //Sepsis on admission. With fever, tachycardia //Right lower lobe PNA -CXR reviewed small right pleural effusion with associated volume loss and/or airspace consolidation and retrocardiac opacity may represent atelectasis or airspace consolidation. -Patient given cefepime and vancomycin given in ER -Continue cefepime. //Acute respiratory failure -Due to pneumonia and CHF exacerbation. -See treatment as above. -CTA was negative for any PE. //Hypokalemia -Improved after replacement. On daily replacement as per cardiology. Replenished as needed. //DM type 2 -Metformin and glipizide held due to [place] -continue with accu check ACHS with SSI coverage //Recurrent falls -May be due to current illness versus decondition. -Once patient improved clinically will consult physical therapist. //Peripheral artery disease. -Subclavian stenosis on CT. Not clinically relevant. Continue medications for CAD. //DVT prophylaxis : Continues on Lovenox. Discharge Planning Patient admitted for multiple issues including NSTEMI, CHF exacerbation, and pneumonia. -palliative care and hospice consult. Once stabilized she will most likely require SNF placement. Eren Link MD Oct 03, 2016 18:48
[2016-10-03] MEDS ORDERED: PILL SPLITTER OTHER PRN (19:45)
[2016-10-03] MEDS ORDERED: LORazepam 0.5 MG TAB PO ONE (20:00)
[2016-10-03] MEDS: FOSPHENYTOIN INJ 200 MGPE in SODIUM CHLORIDE 0.9% INJ 50 ML IV SCH (20:13)
[2016-10-03] MEDS ORDERED: FOSPHENYTOIN SODIUM 100 MG PE/2 ML VIAL IV SCH (21:00)
[2016-10-04] VITALS: BP 110/58; PULSE 69; RESP 17; TEMP 95.6; O2SAT 94
[2016-10-04 00:20] VITALS: PULSE 70
[2016-10-04 00:36] LABS: C. DIFF EPI 027 PRESUMPTIVE NEGATIVE (NEGATIVE); C. DIFF TOXIN PCR NEGATIVE (NEGATIVE)
[2016-10-04 04:00] VITALS: BP 129/60; PULSE 76; RESP 24; TEMP 95.4; O2SAT 94
[2016-10-04] MEDS: CEFEPIME INJ 2,000 MG in SODIUM CHLORIDE 0.9% INJ 100 ML IV SCH (05:53)
[2016-10-04] MEDS: NITROGLYCERIN 2% OINT 1 GM PACKET TOPICAL SCH ×2 (05:53→12:00)
[2016-10-04] MEDS: INSULIN ASPART SUPPLEMENTAL SCALE SQ SCH ×2 (05:57→11:00)
[2016-10-04 08:36] VITALS: BP 132/61; PULSE 76; RESP 16; TEMP 96.7; O2SAT 94
[2016-10-04] MEDS: ENOXAPARIN SODIUM 60 MG/0.6 ML SYRINGE SQ SCH (08:36)
[2016-10-04] MEDS: LISINOPRIL 5 MG TAB PO SCH (08:37)
[2016-10-04] MEDS: PRAVASTATIN SOD 10 MG TAB PO SCH (08:38)
[2016-10-04] MEDS: ASPIRIN EC 81 MG TABEC PO SCH (08:38)
[2016-10-04] MEDS: CLOPIDOGREL 75 MG TAB PO SCH (08:39)
[2016-10-04] MEDS: CARVEDILOL 3.125 MG TAB PO SCH (08:40)
[2016-10-04] MEDS: POTASSIUM CHLORIDE 20 MEQ CONTROLLED RELEASE TAB PO SCH (08:41)
[2016-10-04] MEDS: FOSPHENYTOIN INJ 200 MGPE in SODIUM CHLORIDE 0.9% INJ 50 ML IV SCH (08:42)
[2016-10-04] MEDS: SODIUM CHLORIDE 0.9% FLUSH 10 ML FLUSH IV FLUSH SCH (08:42)
[2016-10-04] MEDS: FUROSEMIDE 40 MG/4 ML VIAL IV PUSH SCH (08:42)
--- NOTE | 2016-10-04 09:37 | HHI.PR ---
Review/Management Diagnosis/Plan: (1) Encephalopathy, metabolic Plan: cardiopulmonary dz appears to be main issue and effecting cognition lacunar infarct cannot be excluded, however on 2 antiplatelets, and high dose lovenox mri brain negative for acute infarct recs eeg- frontal sharps/triphasics- 2/2 encephalopathy; dilantin added ? if cefepime playing any role- consider dc'ing if possible cardiopulm tx defer consulting vascular surgery for left subclavian and carotid dz to primary. does not appear to be good surgical candidate at present, also, doubt these findings are clinically relevant at present follow exam (2) Chronic left arterial ischemic stroke, MCA (middle cerebral artery) Plan: 11/2015 on aspirin/plavix (3) Acute systolic (congestive) heart failure Plan: ef 25-30% (4) NSTEMI (non-ST elevated myocardial infarction) Plan: cardio following Subjective Subjective Comments No acute events reported No headache No chest pain No dyspnea Active Medications Current Medications Medications (Trade) Dose Ordered Sig/Unruly Route Start Time Stop Time Status Last Admin (NS Flush) 2 ml UNSCH PRN IV FLUSH 09/29/16 19:45 (NS Flush) 2 ml BID IV FLUSH 09/29/16 21:00 10/04/16 08:42 (Narcan Inj) 0.4 mg UNSCH PRN IV 09/29/16 19:45 Nitroglycerin 0.5 inch 0.5 inch Q6HR TOPICAL 09/30/16 00:00 10/04/16 05:53 (Maxipime Inj/NS Inj) 100 ml @ 200 mls/hr Q12H IV 09/30/16 06:00 10/04/16 05:53 (Ecotrin Ec) 81 mg DAILY PO 09/30/16 09:00 10/04/16 08:38 (Coreg) 3.125 mg BID PO 09/30/16 09:00 10/04/16 08:40 (Plavix) 75 mg DAILY PO 09/30/16 09:00 10/04/16 08:39 (Pravachol) 10 mg DAILY PO 09/30/16 09:00 10/04/16 08:38 (D50w (Vial) Inj) 50 ml UNSCH PRN IV 09/29/16 23:45 (Glucagon Inj) 1 mg UNSCH PRN OTHER 09/29/16 23:45 (Morphine Inj) 1 mg Q3H PRN IV PUSH 09/30/16 11:00 10/01/16 23:38 (Lasix Inj) 40 mg BID@09,18 IV PUSH 10/01/16 18:00 10/04/16 08:42 (Prinivil) 5 mg DAILY PO 10/01/16 11:30 10/04/16 08:37 (Lovenox Inj) 50 mg Q12H SQ 10/01/16 21:00 10/04/16 08:36 Potassium Chloride 20 meq 20 meq BID PO 10/03/16 09:00 10/04/16 08:41 (Cerebyx Inj/NS Inj) 54 ml @ 216 mls/hr Q12HR IV 10/03/16 21:00 10/04/16 08:42 (Pill Splitter) 1 ea UNSCH PRN OTHER 10/03/16 19:45 Allergies Allergies Coded Allergies No Known Allergies (Unverified11/20/15) Review of Systems All other ROS: ROS reviewed as documented in chart Exam I&O / VS 10/03/16 10/03/16 10/04/16 15:00 23:00 07:00 Output Total 750 ml 450 ml Balance -750 ml -450 ml Output Urine Total 750 ml 450 ml # Bowel Movements 3 2 1 Vital Signs Date Time Temp Pulse Resp B/P Pulse Ox O2 Delivery O2 Flow Rate FiO2 10/04/16 08:36 96.7 76 16 132/61 94 10/04/16 04:00 95.4 76 24 129/60 94 10/04/16 00:20 70 10/04/16 00:00 95.6 69 17 110/58 94 10/03/16 20:00 95.7 74 22 109/59 94 10/03/16 16:00 10/03/16 12:43 81 10/03/16 12:00 95.5 70 20 106/57 95 General: Mild distress Eye: PERRL, Normal conjuctiva Cardiology: Regular Rhythm Neurologic: Alert, Normal motor Exam Comments alert, ox 1. confused, hands covered in feces, inattentive, vff grossly full, face sym, eomi, hector to gravity but bradykinesia, msr sym Objective Micro and Labs Laboratory Tests Test 10/03/16 10/03/16 15:44 22:32 Erythrocyte Sedimentation Rate 18 Ammonia LESS THAN 10 C-Reactive Protein 0.93 Vitamin B12 Level 1330 Thyroid Stimulating Hormone 1.850 3rd Gen Stool C. difficile Toxin (PCR) NEGATIVE Stl C. difficile Toxin PRESUMPTIVE Epiderm 027 NEGATIVE Date/Time Procedure Status Source Growth 09/29/16 22:45 Urine Culture - Final Complete Urine Catheterized Urine NO GROWTH IN 48 HOURS. 09/29/16 18:20 Influenza Types A,B Antigen (DONINE) - Final Complete Nasal Aspirate NEGATIVE FOR FLU A AND B ANTIGEN.... 09/29/16 17:15 Aerobic Blood Culture - Preliminary Resulted Blood Peripheral NO GROWTH IN 4 DAYS 09/29/16 17:15 Anaerobic Blood Culture - Preliminary Resulted Blood Peripheral NO GROWTH IN 4 DAYS Seth Guzman MD Oct 04, 2016 09:37
--- NOTE | 2016-10-04 10:45 | MG ---
cc: JHOAN SEVERINO MD Lab No: [id number] Date: 10/03/2016 Age: 71 Sex: F Race: DATE OF : 1945 71-year-old history of seizures, cataracts, stroke, dizziness, numbness, confusion. 2-4 Hz delta activity 20-40 microvolts. Occasional bursts I amplitude theta. Moderate frontal high-frequency artifact. Occasional frontal sharp transients, triphasic waveforms appreciated. Limited driving with photic stimulation right frontal sharp wave epoch 129. Single EKG showing sinus rhythm. INTERPRETATION Mild to moderate encephalopathy, frontal triphasics, occasional sharp transients. Clinical correlation. Jhoan Severino MD MG/ /10:19 AM /10:46 AM
[2016-10-04] MEDS ORDERED: FOSPHENYTOIN INJ 1,000 MGPE in SODIUM CHLORIDE 0.9% INJ 50 ML IV ONE (11:15)
[2016-10-04 12:25] VITALS: BP 120/58; PULSE 66; RESP 16; TEMP 95.6; O2SAT 97
--- NOTE | 2016-10-04 13:39 | HHI.PR ---
Subjective Remarks Patient seen this morning around 11 AM. Awake. Disoriented as before. Appears more somnolent than yesterday. Objective Vital Signs Date Time Temp Pulse Resp B/P Pulse Ox O2 Delivery O2 Flow Rate FiO2 10/04/16 12:25 95.6 66 16 120/58 97 10/04/16 08:36 96.7 76 16 132/61 94 10/04/16 04:00 95.4 76 24 129/60 94 10/04/16 00:20 70 10/04/16 00:00 95.6 69 17 110/58 94 10/03/16 20:00 95.7 74 22 109/59 94 10/03/16 16:00 I/O 10/03/16 10/03/16 10/03/16 10/04/16 10/04/16 10/04/16 07:00 15:00 23:00 07:00 15:00 23:00 Intake Total 400 ml Output Total 750 ml 450 ml 200 ml Balance 400 ml -750 ml -450 ml -200 ml Intake Oral 400 ml Output Urine Total 750 ml 450 ml 200 ml # Voids 1 # Bowel Movements 1 3 2 1 1 Result Diagram: 10/02/16 1312 10/03/16 0739 Objective Remarks GENERAL: Patient lying in bed. No acute distress. Somnolent. Disoriented. SKIN: Warm and dry. HEAD: Normocephalic. EYES: No scleral icterus. No injection or drainage. NECK: Supple, trachea midline. No JVD . CARDIOVASCULAR: Regular rate and rhythm without murmurs, gallops, or rubs. RESPIRATORY: Breath sounds equal bilaterally. No accessory muscle use. GASTROINTESTINAL: Abdomen soft, non-tender, nondistended. MUSCULOSKELETAL: No cyanosis, or edema. BACK: Nontender without obvious deformity. No CVA tenderness. A/P Assessment and Plan ===10/04/16 -Discussed with hospice nurse. Poor overall prognosis. Will discharge to hospice care center. -Possible seizure-like activity. EEG abnormal likely secondary to encephalopathy. More somnolent secondary to antiepileptics. Appreciate all improvement. Discussed with hospice. //NSTEMI -Last troponin 2.37. -Air Valve Mechanic consulted and managing. -Continue with medical management since patient is clinically improving and has high risks of complication from the procedure. -Patient is on heparin drip, aspirin, carvedilol, Plavix, pravastatin, Nitropaste, and morphine when necessary. Patient will need to be chest pain- free. 2-D echo ordered. -Continue to monitor clinically. -Patient continues very weak. Medications adjusted. Monitor. -Cardiology indicates very poor prognosis, we'll need to discuss ongoing therapy with family. //Suspected dementia. -Patient very poor historian, disoriented to year and date. Possibly worsened by recent events. Obtain a monitor. //Acute on chronic CHF exacerbation BNP 3094 -Patient was given 2 doses of Lasix IV with improvement in breathing. -Will schedule oral Lasix. -Continue with strict ins and outs. -Echo with ejection fraction 20-30%. Increased pulmonary pressures suggested. Cardiology following. Appreciate assistance.. //Bilateral pleural effusion -Possibly Due to use NSTEMI. //Sepsis on admission. With fever, tachycardia //Right lower lobe PNA -CXR reviewed small right pleural effusion with associated volume loss and/or airspace consolidation and retrocardiac opacity may represent atelectasis or airspace consolidation. -Patient given cefepime and vancomycin given in ER -Continue cefepime. //Acute respiratory failure -Due to pneumonia and CHF exacerbation. -See treatment as above. -CTA was negative for any PE. //Hypokalemia -Improved after replacement. On daily replacement as per cardiology. Replenished as needed. //DM type 2 -Metformin and glipizide held due to [place] -continue with accu check ACHS with SSI coverage //Recurrent falls -May be due to current illness versus decondition. -Once patient improved clinically will consult physical therapist. //Peripheral artery disease. -Subclavian stenosis on CT. Not clinically relevant. Continue medications for CAD. //DVT prophylaxis : Continues on Lovenox. Discharge Planning Discussed with hospice nurse. Discharge to hospice care center. Eren Link MD Oct 04, 2016 13:39
--- NOTE | 2016-10-04 13:41 | HHI.DS ---
Discharge Summary Admission Date Sep 29, 2016 at 19:36 Discharge Date: Oct 04, 2016 Admitting Diagnosis bilateral pleural effusions, pneumonia, sepsis (1) Pleural effusion ICD Code: J90 (2) Pneumonia ICD Code: J18.9 (3) CHF (congestive heart failure) ICD Code: I50.9 (4) Chest pain ICD Code: R07.9 (5) DM2 (diabetes mellitus, type 2) ICD Code: E11.9 Procedures No invasive procedures Brief History - From Admission This is a 71 year old female patient with a past medical history which includes Peripheral vascular disease, CVA, Non-ST elevation myocardial infarction, CAD, Hypertension and CHF. Patient reports she does not know why she is here at the hospital. Patient is a poor historian and only able to provide limited information. Information gathered from patient and prior charting. Patient was found today in her car at her apartment complex with the windows up. Patient does not recall being in the car. Patient reports shortness of breath with productive cough for the last few days. Patient also report chest pain which she describes as a tightness located on the left side of her chest worse with deep breathing. There is no radiation of the pain/tightness. Patient denies associated nausea, vomiting or diaphoresis. Patient report she fell about three days ago and her granddaughter had to help her up. Patient reports that she has fallen three time in the last few days. Patient denies LOC, head trauma or injuries. Patient does not recall fevers or chills recently. Patient on arrival temperature was 102.2 rectally, HR 114, RR 42, BP 156/67 and pulse oximetry 90% on room air. CBC/BMP: 10/02/16 1312 10/03/16 0739 Significant Findings Laboratory Tests Test 10/01/16 10/02/16 10/03/16 10/03/16 15:04 13:12 07:39 15:44 Activated Partial 42.0 SEC Thromboplast Time (24.3-30.1) Mean Corpuscular Hemoglobin 26.8 PG (27.0-34.0) Neutrophils (%) (Auto) 79.4 % (16.0-70.0) Monocytes (%) (Auto) 8.5 % (0.0-8.0) Lymphocytes # (Auto) 0.9 TH/MM3 (1.0-4.8) Blood Urea Nitrogen 25 MG/DL (7-18) 26 MG/DL (7-18) Creatinine 1.13 MG/DL (0.50-1.00) Estimat Glomerular Filtration 47 ML/MIN (>89) 59 ML/MIN (>89) Rate Random Glucose 165 MG/DL 132 MG/DL (74-106) (74-106) Ammonia LESS THAN 10 MCMOL/L (11-32) C-Reactive Protein 0.93 MG/DL (0.00-0.30) Vitamin B12 Level 1330 PG/ML (193-986) Test 10/04/16 07:45 Phenytoin (Dilantin) Level 2.6 MCG/ML (10.0-20.0) Imaging Last Impressions Brain MRI 10/03/16 0000 Signed Impressions: Service Date/Time: Monday, October 03, 2016 16:00 - CONCLUSION: 1. No acute findings. No recent infarct. Mild chronic white matter ischemic changes. Rick Lee MD Neck CTA 10/01/16 0000 Signed Impressions: Service Date/Time: Saturday, October 01, 2016 17:16 - CONCLUSION: 1. Moderate to severe calcified and noncalcified plaque within the carotid arteries bilaterally. There is estimated 60%% stenosis in the left internal carotid artery and approximately 40%% stenosis in the right internal carotid artery proximally. 2. The left vertebral artery is occluded. 3. There is severe atherosclerotic disease and severe stenosis of the proximal left subclavian artery. 4. A large right and small left pleural effusion is present. Abdirizak Estrada MD Chest X-Ray 10/01/16 0000 Signed Impressions: Service Date/Time: Saturday, October 01, 2016 15:42 - CONCLUSION: 1. Cardiomegaly with mild positive fluid balance. 2. Small to moderate right pleural effusion and associated right lower lobe airspace disease. 3. Redemonstration of retrocardiac opacity likely reflecting consolidation or atelectasis. Marshall Nunn MD Head CT 09/30/16 0000 Signed Impressions: Service Date/Time: Friday, September 30, 2016 02:12 - CONCLUSION: No bleed or other acute intracranial abnormality. Atrophy and chronic white matter changes are noted. Chronic paranasal sinus disease. Abdirizak Bailey MD Carotid Artery Ultrasound 09/30/16 0000 Signed Impressions: Service Date/Time: Friday, September 30, 2016 09:05 - CONCLUSION: 1. Extensive atherosclerotic plaquing at the carotid bifurcations. Velocities suggest a mild degree of stenosis less than 50%%. The extensive plaquing at the bifurcation is somewhat out of proportion to the velocity measurements within the carotids. CTA of the carotid circulation is warranted for further assessment. 2. The left vertebral was not identified. Damon Najera MD CT Angiography 09/29/16 0000 Signed Impressions: Service Date/Time: Thursday, September 29, 2016 18:52 - CONCLUSION: 1. Examination quality degraded by respiratory motion artifact. However, no PE is identified. 2. Moderate severity emphysema with large right and small left pleural effusion with associated compressive atelectasis. 3. Severe coronary artery calcification atherosclerotic disease of the aorta. Abdirizak Estrada MD PE at Discharge GENERAL: in NAD CARDIOVASCULAR: Regular rate and rhythm without murmurs, gallops, or rubs. RESPIRATORY: Mild right lower lobe crackles. Otherwise clear to auscultation. No accessory muscle use. GASTROINTESTINAL: Abdomen soft, non-tender, nondistended. MUSCULOSKELETAL: No cyanosis, or edema. BACK: Nontender without obvious deformity. No CVA tenderness. Hospital Course ===10/04/16 -Discussed with hospice nurse. Poor overall prognosis. Will discharge to hospice care center. -Possible seizure-like activity. EEG abnormal likely secondary to encephalopathy. More somnolent secondary to antiepileptics. Appreciate all improvement. Discussed with hospice. //NSTEMI -Last troponin 2.37. -Cracking Unit Operator consulted and managing. -Continue with medical management since patient is clinically improving and has high risks of complication from the procedure. -Patient is on heparin drip, aspirin, carvedilol, Plavix, pravastatin, Nitropaste, and morphine when necessary. Patient will need to be chest pain- free. 2-D echo ordered. -Continue to monitor clinically. -Patient continues very weak. Medications adjusted. Monitor. -Cardiology indicates very poor prognosis, we'll need to discuss ongoing therapy with family. //Suspected dementia. -Patient very poor historian, disoriented to year and date. Possibly worsened by recent events. Obtain a monitor. //Acute on chronic CHF exacerbation BNP 3094 -Patient was given 2 doses of Lasix IV with improvement in breathing. -Will schedule oral Lasix. -Continue with strict ins and outs. -Echo with ejection fraction 20-30%. Increased pulmonary pressures suggested. Cardiology following. Appreciate assistance.. //Bilateral pleural effusion -Possibly Due to use NSTEMI. //Sepsis on admission. With fever, tachycardia //Right lower lobe PNA -CXR reviewed small right pleural effusion with associated volume loss and/or airspace consolidation and retrocardiac opacity may represent atelectasis or airspace consolidation. -Patient given cefepime and vancomycin given in ER -Continue cefepime. //Acute respiratory failure -Due to pneumonia and CHF exacerbation. -See treatment as above. -CTA was negative for any PE. //Hypokalemia -Improved after replacement. On daily replacement as per cardiology. Replenished as needed. //DM type 2 -Metformin and glipizide held due to IN -continue with accu check ACHS with SSI coverage //Recurrent falls -May be due to current illness versus decondition. -Once patient improved clinically will consult physical therapist. //Peripheral artery disease. -Subclavian stenosis on CT. Not clinically relevant. Continue medications for CAD. //DVT prophylaxis : Continues on Lovenox. Discharge Planning Discussed with hospice nurse. Discharge to hospice care center. Pt Condition on Discharge: Stable Discharge Disposition: Hospice/Med Facility Discharge Time: > 30 minutes Discharge Instructions DIET: Follow Instructions for: Heart Healthy Diet Activities you can perform: Regular-No Restrictions Eren Link MD Oct 04, 2016 13:41
== END 2016-10-04 13:56 | disposition hospice, inpatient (51) | DRG 871 ==
LOC: NEPE 17:00 → NEDA 19:36 → N05A 21:24
PROVIDERS: ADMIT Internal Medicine; ATTEND Internal Medicine
DX: A41.9 Sepsis, unspecified organism (principal); J18.9 Pneumonia, unspecified organism; I21.4 Non-ST elevation (NSTEMI) myocardial infarction; J96.00 Acute respiratory failure, unspecified whether with hypoxia or hypercapnia; I50.23 Acute on chronic systolic (congestive) heart failure; G93.41 Metabolic encephalopathy; E87.2 Acidosis; I11.0 Hypertensive heart disease with heart failure; E11.51 Type 2 diabetes mellitus with diabetic peripheral angiopathy without gangrene; I73.9 Peripheral vascular disease, unspecified; I70.0 Atherosclerosis of aorta; I25.10 Atherosclerotic heart disease of native coronary artery without angina pectoris; R29.6 Repeated falls; J43.9 Emphysema, unspecified; E78.5 Hyperlipidemia, unspecified; F03.90 Unspecified dementia, unspecified severity, without behavioral disturbance, psychotic disturbance, mood disturbance, and anxiety; E87.6 Hypokalemia; I70.8 Atherosclerosis of other arteries; Z86.73 Personal history of transient ischemic attack (TIA), and cerebral infarction without residual deficits; Z87.891 Personal history of nicotine dependence; Z79.84 Long term (current) use of oral hypoglycemic drugs; Z51.5 Encounter for palliative care; Z66 Do not resuscitate
CPT/HCPCS: 36600; 70450; 70498; 70551; 71010; 71275; 80048; 80061; 80185; 81001; 82140; 82550; 82607; 82805; 82948; 83605; 83735; 83880; 84443; 84484; 85025; 85027; 85379; 85610; 85652; 85730; 86140; 87040; 87077; 87086; 87186; 87493; 87804; 93005; 93306; 93880; 94640; 94664; 95819; 96361; 96365; 96366; 96368; 96374; J0692; J1644; J1650; J1815; J1940; J2270; J2930; J3370; J7030; J7040; Q2009; Q9967